=== PATIENT | male | born 1970 | race African-American/Black ===

== ENCOUNTER 2016-05-14 14:59 | Inpatient (IN) ==
[2016-05-14] MEDS ORDERED: HYDROmorphone 2 MG/1 ML VIAL IV PRN (15:04)
[2016-05-14] MEDS ORDERED: ONDANSETRON 4 MG/2 ML VIAL IV PRN (15:04)
[2016-05-14] MEDS ORDERED: ACETAMINOPHEN 325 MG TABLET PO PRN (15:04)
[2016-05-14 16:19] LABS: Basophils % 0.3 % (0.0-0.8); Eosinophils # 0.1 10*3/uL (0.0-0.87); Hematocrit 43.2 VOL% (42.0-52.0); Immature Granulocytes % 0.3 %; Immature Granulocytes Absolute 0.03 #; Lymphocytes # 2.8 10*3/uL (1.4-4.0); Lymphocytes % 31.2 % (21.2-54.2); Mean Corpuscular HGB Conc 32.4 GM/DL (32-36); Mean Corpuscular Hemoglobin 30 PG (27-34); Mean Corpuscular Volume 91.9 FL (87-102); Mean Platelet Volume 10.6 FL (9.6-12.0); Monocytes # 0.7 10*3/uL (0.11-0.8); Neutrophils # 5.3 10*3/uL (1.4-7.4); Neutrophils % 59.2 % (38.7-73.9); Platelet Count 288 10*3/uL (130-400); Red Cell Distribution Width 12.9 % (9.3-17.3)
[2016-05-14 16:40] LABS: Alanine Aminotransferase 16 U/L (16-61); Albumin 3.8 G/DL (3.4-5.0); Alkaline Phosphatase 149 U/L (45-117); Aspartate Amino Transferase 19 U/L (0-37); Bilirubin,Total < 0.39 MG/DL (0.2-1.0); Blood Urea Nitrogen 10 MG/DL (7-18); Calcium 9.8 MG/DL (8.5-10.1); Glucose 87 MG/DL (74-106); Osmolality,Calculated 278.3 MOS/KG (273-304); Sodium 141 MMOL/L (136-145); Total Protein 8.4 G/DL (6.4-8.3)
--- NOTE | 2016-05-14 17:57 | General Surg History&Physical ---
Assessment and Plan - Time spent with patient Time spent with patient: Less than 30 minutes (1) Perirectal abscess Status: Acute Assessment and plan: Impression: Recurrent perirectal abscess left gluteal area. Plan: IV antibiotics and surgical drainage and debridement Current Visit: No History of Present Illness Chief complaint: increasing pain and swelling with drainage left perirectal area History of present illness: Mr. Murphy is a 45 year old male -[place] male who couple months ago had undergo drainage of bilateral perirectal abscesses in both gluteal areas. He is done well with the right one completely healing up without any unusual drainage or swelling. He's had a little bit of drainage from the left perirectal area still over time. This is gotten worse with some increased induration and tenderness and more drainage present. It appears that he has a recurrence on this side and whether this represents a fistula not is difficult to say since this abscess seems so far away from the anal area. At this point we'll go ahead and put him in for drainage of this area to see if we can get control of this process. Home Medications Medication Instructions Recorded Confirmed Type Acetaminophen Tab [Tylenol Tab] 650 mg PO Q6H PRN #0 tablet 03/20/16 05/14/16 Rx HYDROcodone/ACETAMIN 7.5-325 1 tablet PO Q6H PRN #40 tablet 03/20/16 05/14/16 Rx [[place] 7.5-325] Allergies Allergy/AdvReac Type Severity Reaction Status Date / Time No Known Allergies Allergy Unverified 02/03/16 09:59 Medical,Surgical,& Family Hx - Medical History Respiratory: History of: Asthma (as a child) Other: History of: Miscellaneous Medical Problems (left and right buttock cheek abscess) - Family History Family History: Reports;: Family Cancer, Family Diabetes, Family Hypertension - Social History Smoking Status: Current every day smoker Lives With:: Parent Functional capacity: independent ambulation Exam - Constitutional Vitals: Period Temp Pulse Resp BP Sys/Polanco Pulse Ox Last 24 Hr 88 16 156/93 100 General appearance: mild distress - Head Head exam: Present: normal inspection - ENT ENT exam: Present: normal exam - Neck Neck exam: Present: normal inspection - Respiratory Respiratory exam: Present: clear to auscultation bilaterally - Cardiovascular Cardiovascular exam: Present: RRR - GI/Abdominal GI/Abdominal exam: Present: normal bowel sounds, soft - Anus/Rectum Anus/Rectum: other (there is a tender mass on the left gluteal perirectal area at the level of an old scar with purulent drainage.) - Extremities Exam Extremities exam: Present: normal inspection - Back Exam Back exam: Present: normal inspection - Neurological Exam Neurological exam: Present: alert, oriented X3, CN II-XII intact - Skin Skin exam: Present: normal color, warm, dry 12 point system: reviewed and no additional remarkable complaints except as stated Quality Measures - VTE Contraindication to Pharmacological VTE Prophylaxis: High Risk of Bleeding Results - Labs CBC & BMP: 05/14/16 16:06 05/14/16 16:05 Lab Results: I have reviewed the past 24 hour labs
[2016-05-14] MEDS: metroNIDAZOLE INJ 500 MG in PREMIX 1 EACH IV SCH ×2 (18:18→23:51)
[2016-05-14] MEDS: DEXTROSE 5% NACL 0.45% 1,000 ML IV SCH ×2 (21:28→23:52)
[2016-05-14] MEDS: DOCUSATE SODIUM 100 MG CAPSULE PO SCH (21:28)
[2016-05-15] MEDS ORDERED: ALBUTEROL 2.5 MG/3 ML NEB RESP TX ONE (06:00)
[2016-05-15] MEDS: metroNIDAZOLE INJ 500 MG in PREMIX 1 EACH IV SCH ×3 (07:30→23:13)
[2016-05-15] MEDS ORDERED: BUPIVACAINE 0.25% 50 ML VIAL ONE (09:40)
[2016-05-15] MEDS: DEXTROSE 5% NACL 0.45% 1,000 ML IV SCH ×3 (09:43→16:49)
[2016-05-15] MEDS: PANTOPRAZOLE 40 MG TABLET PO SCH (10:04)
[2016-05-15] MEDS: DOCUSATE SODIUM 100 MG CAPSULE PO SCH ×2 (10:04→21:45)
[2016-05-15] MEDS ORDERED: KETOROLAC 30 MG/1 ML VIAL ONE (10:50)
[2016-05-15] MEDS ORDERED: LIDOCAINE 100 MG/5 ML SYRINGE ONE (10:50)
[2016-05-15] MEDS ORDERED: PROPOFOL 200 MG/20 ML VIAL IV ONE (10:50)
[2016-05-15] MEDS ORDERED: ONDANSETRON 4 MG/2 ML VIAL ONE (10:50)
[2016-05-15] MEDS ORDERED: METHYLENE BLUE 10 ML VIAL IV ONE (11:10)
[2016-05-15] MEDS ORDERED: BISACODYL 5 MG TABLET PO PRN (11:39)
[2016-05-15] MEDS ORDERED: ONDANSETRON 4 MG/2 ML VIAL IV PRN ×2 (11:39→12:08)
[2016-05-15] MEDS ORDERED: ACETAMINOPHEN 1,000 MG/100 ML VIAL IV ONE (11:53)
[2016-05-15] MEDS ORDERED: SEVOFLURANE 1 UNIT/15 MINUTE INH ONE (11:53)
--- NOTE | 2016-05-15 11:55 | Operative Note ---
Date of procedure: 05/15/16 Pre-op diagnosis: recurrent perirectal abscess Post-op diagnosis: other (recurrent perirectal abscess with deep cavity but no clear fistula opening) Procedure: Operative note: Preoperative diagnosis: Recurrent perirectal abscess left gluteal area Postoperative diagnosis: Recurrent perirectal abscess involving both gluteal wounds with deep cavity but no clear fistula opening demonstrated. Procedure: Rectal exam under anesthesia with dye instillation into fistula tracts Excisional debridement and drainage of abscess cavities with placement of Rekha drains Surgeon Dr. Ruiz Anesthesia was general with local Brief history: 45-year-old [place] male about a month ago at abscesses in the elinor-in the perirectal gluteal areas of the both gluteal regions. They were opened and drained one on the right seem to have healed up completed one left tenet have a little bit of drainage. He returned yesterday to the office with more pain and induration in this area on the left. We fail weight need to go back and try get this drained and it was really far away from the anal area onto the gluteal region. A 1 sure what we would find the felt we need to get this better open for drainage. Procedure: With patient in the dorsal lithotomy position in stirrups was able to approach this area of the gluteal region. He could see the induration and drainage from the left gluteal wound that was holding almost healed up except for the site of drainage. At that point I attempted to probe it and it seemed to have a deep cavity going in towards the center portion of the perirectal gluteal area. At that point I went ahead and placed some methylene blue in we did we suddenly so blue dye from the right old gluteal wound. At that point I probed that right side and it went and they seemed to be going towards the center portion of this posterior perineal perirectal area. At that point I made an incision to open these up extending it towards the midline on both wounds. I was able put a finger into these wounds at this time and attempted to make him communicate but they would not seem to communicate but they seem to go Deep into the perirectal area of. That point we did an exam under anesthesia with a speculum and there is seen to be a little posterior anal ulcer present there and off to the right side with a right angle clamp seem to be a tract that will need to go in that direction. I attempted to I could not make him communicate with the dye or the probes at this point. Did not want to create additional wound that was not necessary at this point but a new we had to wounds going and deeply pointing towards this region. It is suspicious for a fistula but I could not make it clearly demonstrated itself at this time. At this point elected distal used electrocauterization control the bleeding at skin edges placed 2 Rekha drains in deeply and there and sutured in place with 4-0 nylon. A flatus allow these tracks to close over failed and direct out and maybe give us a clue used what's going on. At this point had need nothing more to do so we could bulky dressing zone could patient recovery room. Estimated blood loss 20 mL Sponge count correct 2 Drains 2 half-inch Rekha since Complications none Condition stable satisfactory Anesthesia: GETA, local (0.25% Marcaine with epinephrine mixed [id number] 1% Xylocaine plain) Surgeon / Physician: Kurtis Ruiz Estimated blood loss: other (20 mL) Specimens: other (cultures) Condition: stable Disposition: floor Results - Labs CBC & BMP: 05/14/16 16:06 05/14/16 16:05 Discharge Plan - Discharge Medications No Action Acetaminophen Tab [Tylenol Tab] 650 mg PO Q6H PRN #0 tablet PRN Reason: Pain Mild (1-3) HYDROcodone/ACETAMIN 7.5-325 [[place] 7.5-325] 1 tablet PO Q6H PRN #40 tablet PRN Reason: Pain Moderate (4-7) - Follow Up or Referral - Forms/Instructions
[2016-05-15] MEDS ORDERED: fentaNYL 100 MCG/2 ML VIAL ONE ×2 (11:56)
[2016-05-15] MEDS ORDERED: MIDAZOLAM 2 MG/2 ML VIAL ONE (11:57)
[2016-05-15] MEDS ORDERED: HYDROmorphone 2 MG/1 ML VIAL IV PRN (12:08)
[2016-05-15] MEDS ORDERED: LACTATED RINGERS 1,000 ML IV SCH (12:30)
[2016-05-15] MEDS: KETOROLAC 15 MG/1 ML VIAL IV SCH ×3 (13:35→23:14)
--- NOTE | 2016-05-15 15:56 | Anesthesia ---
Anesthesia Post OP - Post Ansesthetic Evaluation Patient seen in post op: Yes Resp: within normal limits CV: within normal limits Mental: within normal limits Temp: within normal limits [id number]: within normal limits Nausea and Vomiting: within normal limits Pain: within normal limits
[2016-05-16] MEDS: KETOROLAC 15 MG/1 ML VIAL IV SCH ×4 (05:53→23:35)
[2016-05-16] MEDS: DEXTROSE 5% NACL 0.45% 1,000 ML IV SCH ×2 (05:55→18:14)
[2016-05-16 07:11] LABS: Basophils % 0.4 % (0.0-0.8); Eosinophils # 0.1 10*3/uL (0.0-0.87); Eosinophils % 1.5 % (0.00-10.9); Hematocrit 37.1 VOL% (42.0-52.0); Hemoglobin 12.1 GM/DL (14.0-18.0); Immature Granulocytes % 0.1 %; Immature Granulocytes Absolute 0.01 #; Lymphocytes # 1.7 10*3/uL (1.4-4.0); Lymphocytes % 22.6 % (21.2-54.2); Mean Corpuscular HGB Conc 32.6 GM/DL (32-36); Mean Corpuscular Hemoglobin 30 PG (27-34); Mean Corpuscular Volume 90.7 FL (87-102); Mean Platelet Volume 10.4 FL (9.6-12.0); Monocytes # 0.7 10*3/uL (0.11-0.8); Monocytes % 9.2 % (1.7-12.7); Neutrophils # 4.9 10*3/uL (1.4-7.4); Neutrophils % 66.2 % (38.7-73.9); Platelet Count 266 10*3/uL (130-400); Red Blood Count 4.09 10*6/uL (3.8-5.5); Red Cell Distribution Width 12.7 % (9.3-17.3); White Blood Count 7.4 10*3/uL (4.5-13.71)
[2016-05-16 07:38] LABS: Calcium 8.7 MG/DL (8.5-10.1); Osmolality,Calculated 280.1 MOS/KG (273-304); Potassium 4.2 MMOL/L (3.5-5.1)
[2016-05-16] MEDS: metroNIDAZOLE INJ 500 MG in PREMIX 1 EACH IV SCH ×3 (08:54→23:34)
[2016-05-16] MEDS: PANTOPRAZOLE 40 MG TABLET PO SCH (08:54)
[2016-05-16] MEDS: DOCUSATE SODIUM 100 MG CAPSULE PO SCH ×2 (08:54→20:20)
--- NOTE | 2016-05-16 10:31 | General Surgery Progress Note ---
Assessment and Plan - Time spent with patient Time spent with patient: Less than 30 minutes (1) Perirectal abscess Status: Acute Assessment and plan: Impression: Recurrent perirectal abscess left gluteal area. Plan: IV antibiotics and surgical drainage and debridement 05/16/2016 Patient is postop I&D of bilateral perirectal abscesses. I feel like there is a fistula involved but could not make it clearly demonstrated self at this time. Starting since mass a local care again with continued IV antibiotics till cultures are back. Hope that we can get this to resolve [place] out to just one track or better demonstrate the anal fistula at some point. Current Visit: No Subjective Patient reports: Present: still having pain, tolerating a regular diet, afebrile. Absent: no bowel movement Exam - Constitutional Vitals: Period Temp Pulse Resp BP Sys/Polanco Pulse Ox Last 24 Hr 97.6 F-98.7 F 59-85 14-19 105-164/67-99 96-100 General appearance: mild distress - Head Head exam: Present: normal inspection - ENT ENT exam: Present: normal exam - Neck Neck exam: Present: normal inspection - Respiratory Respiratory exam: Present: clear to auscultation bilaterally - Cardiovascular Cardiovascular exam: Present: RRR - GI/Abdominal GI/Abdominal exam: Present: hypoactive bowel sounds, soft - Anus/Rectum Anus/Rectum: other (drains in place moderate drainage) - Extremities Exam Extremities exam: Present: normal inspection - Neurological Exam Neurological exam: Present: alert, oriented X3, CN II-XII intact - Skin Skin exam: Present: normal color, warm, dry Results - Labs CBC & BMP: 05/16/16 06:49 05/16/16 06:49 Lab Results: I have reviewed the past 24 hour labs Quality Measures - VTE Contraindication to Pharmacological VTE Prophylaxis: High Risk of Bleeding Specialty Discharge - Follow Up or Referrals - Discharge Medications No Action Acetaminophen Tab [Tylenol Tab] 650 mg PO Q6H PRN #0 tablet PRN Reason: Pain Mild (1-3) HYDROcodone/ACETAMIN 7.5-325 [[place] 7.5-325] 1 tablet PO Q6H PRN #40 tablet PRN Reason: Pain Moderate (4-7)
[2016-05-16] MEDS: BACITRACIN OINT 0.9 GM PACK TOP SCH (12:55)
[2016-05-16] MEDS: HYDROmorphone 2 MG/1 ML VIAL IV PRN (20:13)
[2016-05-17] MEDS: BACITRACIN OINT 0.9 GM PACK TOP SCH ×3 (00:01→21:27)
[2016-05-17] MEDS: KETOROLAC 15 MG/1 ML VIAL IV SCH ×4 (05:58→23:50)
[2016-05-17] MEDS: DEXTROSE 5% NACL 0.45% 1,000 ML IV SCH ×3 (05:59→17:44)
[2016-05-17] MEDS: metroNIDAZOLE INJ 500 MG in PREMIX 1 EACH IV SCH ×3 (06:33→23:49)
[2016-05-17] MEDS: PANTOPRAZOLE 40 MG TABLET PO SCH (09:00)
[2016-05-17] MEDS: DOCUSATE SODIUM 100 MG CAPSULE PO SCH ×2 (09:00→21:26)
[2016-05-17] MEDS: HYDROmorphone 2 MG/1 ML VIAL IV PRN ×2 (09:01→16:41)
--- NOTE | 2016-05-17 10:55 | General Surgery Progress Note ---
Assessment and Plan (1) Perirectal abscess Status: Acute Assessment and plan: Impression: Recurrent perirectal abscess left gluteal area. Plan: IV antibiotics and surgical drainage and debridement 05/16/2016 Patient is postop I&D of bilateral perirectal abscesses. I feel like there is a fistula involved but could not make it clearly demonstrated self at this time. Starting since mass a local care again with continued IV antibiotics till cultures are back. Hope that we can get this to resolve [place] out to just one track or better demonstrate the anal fistula at some point. 05/17/2016 Afebrile and sitz baths and wound care or progressing. Cultures are still pending at this time. Moderate discomfort but beginning to improve a little bit and feel like that he can manage it better. Current Visit: No Subjective Patient reports: Present: feels better, pain is less, tolerating a regular diet , afebrile Exam - Constitutional Vitals: Period Temp Pulse Resp BP Sys/Polanco Pulse Ox Last 24 Hr 97.8 F-99.0 F 59-72 16-20 135-156/72-98 96-100 General appearance: no acute distress - Respiratory Respiratory exam: Present: clear to auscultation bilaterally - Cardiovascular Cardiovascular exam: Present: RRR - GI/Abdominal GI/Abdominal exam: Present: normal bowel sounds, soft - Anus/Rectum Anus/Rectum: other (perianal area with the drains in place and some moderate drainage but only tenderness but less induration) - Neurological Exam Neurological exam: Present: alert, oriented X3, CN II-XII intact - Skin Skin exam: Present: normal color, warm, dry Results - Labs CBC & BMP: 05/16/16 06:49 05/16/16 06:49 Lab Results: I have reviewed the past 24 hour labs Quality Measures - VTE Contraindication to Pharmacological VTE Prophylaxis: High Risk of Bleeding Specialty Discharge - Follow Up or Referrals - Discharge Medications No Action Acetaminophen Tab [Tylenol Tab] 650 mg PO Q6H PRN #0 tablet PRN Reason: Pain Mild (1-3) HYDROcodone/ACETAMIN 7.5-325 [[place] 7.5-325] 1 tablet PO Q6H PRN #40 tablet PRN Reason: Pain Moderate (4-7)
[2016-05-18] MEDS: KETOROLAC 15 MG/1 ML VIAL IV SCH (05:38)
--- NOTE | 2016-05-18 07:53 | General Surgery Progress Note ---
Assessment and Plan - Time spent with patient Time spent with patient: Less than 30 minutes (1) Perirectal abscess Status: Acute Assessment and plan: Impression: Recurrent perirectal abscess left gluteal area. Plan: IV antibiotics and surgical drainage and debridement 05/16/2016 Patient is postop I&D of bilateral perirectal abscesses. I feel like there is a fistula involved but could not make it clearly demonstrated self at this time. Starting since mass a local care again with continued IV antibiotics till cultures are back. Hope that we can get this to resolve [place] out to just one track or better demonstrate the anal fistula at some point. 05/17/2016 Afebrile and sitz baths and wound care or progressing. Cultures are still pending at this time. Moderate discomfort but beginning to improve a little bit and feel like that he can manage it better. 05/18/2016 Patient's afebrile [place] wound care fairly well but it is difficult for him. Cultures are not completely back although there is showing some no growth. This makes it more difficult first understanding with this process is is caused this to occur at this time. We'll probably send patient home tomorrow if finals on his cultures are out and we'll see exactly what how he responds to treatment at home. I suspect Rekha drains will work airways out in a few days. Current Visit: No Subjective Patient reports: Present: pain is less, tolerating a regular diet, afebrile Exam - Constitutional Vitals: Period Temp Pulse Resp BP Sys/Polanco Pulse Ox Last 24 Hr 97.9 F-99.0 F 58-77 16-20 134-159/73-98 96-100 General appearance: mild distress - Head Head exam: Present: normal inspection - ENT ENT exam: Present: normal exam - Neck Neck exam: Present: normal inspection - Respiratory Respiratory exam: Present: clear to auscultation bilaterally, rales - Cardiovascular Cardiovascular exam: Present: RRR - GI/Abdominal GI/Abdominal exam: Present: normal bowel sounds, soft - Anus/Rectum Anus/Rectum: other (wounds on the buttocks areas have a little bit of drainage with the [place] drain still in place and intact) - Extremities Exam Extremities exam: Present: normal inspection - Neurological Exam Neurological exam: Present: alert, oriented X3, CN II-XII intact - Skin Skin exam: Present: normal color, warm, dry Results - Labs CBC & BMP: 05/16/16 06:49 05/16/16 06:49 Lab Results: I have reviewed the past 24 hour labs Quality Measures - VTE Contraindication to Pharmacological VTE Prophylaxis: High Risk of Bleeding Specialty Discharge - Follow Up or Referrals - Discharge Medications No Action Acetaminophen Tab [Tylenol Tab] 650 mg PO Q6H PRN #0 tablet PRN Reason: Pain Mild (1-3) HYDROcodone/ACETAMIN 7.5-325 [[place] 7.5-325] 1 tablet PO Q6H PRN #40 tablet PRN Reason: Pain Moderate (4-7)
[2016-05-18] MEDS: DEXTROSE 5% NACL 0.45% 1,000 ML IV SCH (08:02)
[2016-05-18] MEDS: metroNIDAZOLE INJ 500 MG in PREMIX 1 EACH IV SCH ×3 (08:20→22:34)
[2016-05-18] MEDS: DOCUSATE SODIUM 100 MG CAPSULE PO SCH ×2 (08:23→20:49)
[2016-05-18] MEDS: BACITRACIN OINT 0.9 GM PACK TOP SCH ×2 (08:23→20:49)
[2016-05-18] MEDS: PANTOPRAZOLE 40 MG TABLET PO SCH (08:23)
[2016-05-19] MEDS: metroNIDAZOLE INJ 500 MG in PREMIX 1 EACH IV SCH ×2 (09:30→16:26)
[2016-05-19] MEDS: BACITRACIN OINT 0.9 GM PACK TOP SCH (09:31)
[2016-05-19] MEDS: DOCUSATE SODIUM 100 MG CAPSULE PO SCH (09:35)
[2016-05-19] MEDS: PANTOPRAZOLE 40 MG TABLET PO SCH (09:35)
[2016-05-19 16:25] VITALS: BP 128/68
--- NOTE | 2016-05-19 16:28 | Discharge Summary ---
Hospital Course - Hospital Course Hospital Course: Discharge summary: Discharge diagnosis recurrent bilateral gluteal peroneal perirectal abscesses Procedure: Excisional debridement and drainage of bilateral gluteal peroneal ulcers with rectal exam under anesthesia Surgeon Dr. Ruiz Brief summary: 45-year-old after [place] male who had undergone drainage of large abscesses on both gluteal areas better than a month ago and was doing pretty well with 1 to seemly closed. He continued to have drainage of the left gluteal area and in came in with with increased pain and induration of the left gluteal region. It appeared that he had a recurrence of this abscess so we elected bring him in for IV antibiotics and surgery. He went to surgery and the time of surgery We in still some blue dye into the left gluteal defect and had it show up out of the right wound right gluteal scar. At that point we began to open both the right and left gluteal areas. Both gluteal wounds dissected deep towards the perirectal area but did not completely communicate with each other. Cultures were taken from the deep part of these wounds. And then we did an exam under anesthesia of the rectum but could not identify a clear fistula opening into the defects. Unable to determine the true etiology of this we then put Rekha drains in to the deep or the wounds and secured the him to the skin for drainage purposes. He's been on the floor on IV antibiotics and undergoing wound care with showers and sits bacitracin these areas is clean as possible in the hopes of getting him to heal from the inside out. Remaining concerned we don't really have a good reason for this recurrent of this wound. Her cultures did grow gram-positive cocci out although they never did give us a clear densification of it. He is doing better and tolerated things well to the point that we'll go ahead and let him go home to continue care and follow him up in the office we'll keep these drains in place at this time. - Time spent with patient Time with patient DS: Greater than 30 minutes Diagnosis - Discharge Diagnosis (1) Perirectal abscess Status: Chronic Specialty Discharge - Follow Up or Referrals Follow up with: Kurtis Ruiz MD [Physician] - 05/26/16 - Speciality Discharge Instructions Surgery Instructions: 1. Continue present wound care to the gluteal areas. 2. Keep dressing in place as much as possible. 3. Dress the wounds twice a day and more often as needed. 4. We'll see in the office in a week to see what we underwent the drains at that time. - Discharge Medications New Acetaminophen Tab [Tylenol Tab] 650 mg PO Q6H PRN #0 tablet PRN Reason: Pain Mild (1-3) And/Or Fever Docusate Sodium Cap [Colace Cap] 100 mg PO BID #30 capsule HYDROcodone/ACETAMIN 7.5-325 [[place] 7.5-325] 1 tablet PO Q6H PRN #40 tablet PRN Reason: Pain Moderate (4-7) Sulfameth/Trimeth 800-160 Tab [Bactrim DS Tab] 1 tablet PO BID 14 Days Continue Acetaminophen Tab [Tylenol Tab] 650 mg PO Q6H PRN #0 tablet PRN Reason: Pain Mild (1-3) HYDROcodone/ACETAMIN 7.5-325 [[place] 7.5-325] 1 tablet PO Q6H PRN #40 tablet PRN Reason: Pain Moderate (4-7) Discharge Plan - Discharge Data Disposition: Disch To Home/Self Care Condition at Discharge: Stable Discharge Diet: advance to your usual diet Activity: increase activity as tolerated Hygiene: may shower, other (sitz baths) Weight Bearing at Discharge: full weight bearing Driving: no restrictions Contact your physician if you experience:: fever over 101, Redness or swelling, pain uncontrolled by pain medications Wound / Dressing Care Instructions: Wound care to the buttocks wounds twice a day and as needed. 1. Shower and use soap of choice--then get into a sitz baths. 2. Dry well and applied bacitracin ointment to the area of the drains. 3. Cover with fluffs and ABDs. 4. Wear brief underwear to try to hold dressings in place - Discharge Medications No Action Acetaminophen Tab [Tylenol Tab] 650 mg PO Q6H PRN #0 tablet PRN Reason: Pain Mild (1-3) HYDROcodone/ACETAMIN 7.5-325 [[place] 7.5-325] 1 tablet PO Q6H PRN #40 tablet PRN Reason: Pain Moderate (4-7) - Follow Up or Referral - Forms/Instructions Exam - Constitutional Vitals: Period Temp Pulse Resp BP Sys/Polanco Pulse Ox Last 24 Hr 97.8 F-99 F 53-105 18-20 120-156/70-107 94-99 General appearance: mild distress - Head Head exam: Present: normal inspection - ENT ENT exam: Present: normal exam - Neck Neck exam: Present: normal inspection - Respiratory Respiratory exam: Present: clear to auscultation bilaterally - Cardiovascular Cardiovascular exam: Present: regular rate and rhythm - GI/Abdominal GI/Abdominal exam: Present: normal bowel sounds, soft - Extremities Exam Extremities exam: Present: normal inspection - Back Exam Back exam: Present: other (wounds are clean with some drainage and the [place] still in place.) - Neurological Exam Neurological exam: Present: alert, oriented X3, CN II-XII intact - Psychiatric Psychiatric exam: Present: normal affect, anxious - Skin Skin exam: Present: normal color, warm, dry DS: Provider Date of admission: 05/14/16 15:04 Primary care physician: . No PCP Attending physician on admission: Kurtis Ruiz MD Consults: 05/14/16 17:09 Consult to Pharmacy [CONS] Routine Reason for Pharmacy Consult: Adjust Meds Renal Funct Discharging clinician: Kurtis Ruiz MD Expected date of discharge: 05/19/16
== END 2016-05-19 17:30 | disposition home or self-care (01) | DRG 330 ==
LOC: EDBD → N.5E → OBSVTOIN 15:04
PROVIDERS: ADMIT Specialist; ATTEND Specialist

== ENCOUNTER 2016-12-09 13:08 | Inpatient (IN) ==
[2016-12-09 15:47] LABS: Basophils % 0.3 % (0.0-0.8); Eosinophils # 0.1 10*3/uL (0.0-0.87); Eosinophils % 1.2 % (0.00-10.9); Hematocrit 42.8 VOL% (42.0-52.0); Hemoglobin 14.6 GM/DL (14.0-18.0); Immature Granulocytes % 0.3 %; Immature Granulocytes Absolute 0.03 #; Lymphocytes % 34.9 % (21.2-54.2); Mean Corpuscular HGB Conc 34.1 GM/DL (32-36); Mean Corpuscular Hemoglobin 31 PG (27-34); Mean Corpuscular Volume 91.6 FL (87-102); Mean Platelet Volume 10.6 FL (9.6-12.0); Monocytes # 0.6 10*3/uL (0.11-0.8); Monocytes % 7.4 % (1.7-12.7); Neutrophils # 4.9 10*3/uL (1.4-7.4); Neutrophils % 55.9 % (38.7-73.9); Platelet Count 263 T/CUMM (130-400); Red Blood Count 4.67 MC/CUMM (3.8-5.5); Red Cell Distribution Width 13.1 % (9.3-17.3); White Blood Count 8.7 T/CUMM (4-12)
--- NOTE | 2016-12-09 15:49 | Emergency Department Note ---
Arrival - Arrival Chief Complaint: Non-Specific Stated Complaint: pain down back and leg numbness,feet tingling ED Nursing Triage Note: states when walking his rt side goes numb when walking onset 6 months ago. pt also had something on lt thigh that is drainage onset 3 weeks ago Mode of Arrival: Ambulatory Source: Patient Time Seen by Provider: 12/09/16 14:17 - History of Present Illness HPI Narrative: 45 y/o male presents to the ER complaining of pain and drainage to buttock. Symptoms starting three weeks ago. Patient had I&D to perirectal abscess in May by Dr. Ruiz. Patient states abscess improved after I&D but has now returned. Last medical history significant for asthma and perirectal abscess. Onset (ago): week(s) (3) Consistency: constant Severity: mild Allergies/Adverse Reactions: Allergies Allergy/AdvReac Type Severity Reaction Status Date / Time No Known Allergies Allergy Unverified 02/03/16 09:59 Home Medications: Home Medications Medication Instructions Recorded Confirmed Type Acetaminophen Tab [Tylenol Tab] 650 mg PO Q6H PRN #0 tablet 03/20/16 05/14/16 Rx HYDROcodone/ACETAMIN 7.5-325 1 tablet PO Q6H PRN #40 tablet 03/20/16 05/14/16 Rx [[place] 7.5-325] Acetaminophen Tab [Tylenol Tab] 650 mg PO Q6H PRN #0 tablet 05/19/16 Rx Docusate Sodium Cap [Colace Cap] 100 mg PO BID #30 capsule 05/19/16 Rx HYDROcodone/ACETAMIN 7.5-325 1 tablet PO Q6H PRN #40 tablet 05/19/16 Rx [[place] 7.5-325] Sulfameth/Trimeth 800-160 Tab 1 tablet PO BID 14 Days 05/19/16 Rx [Bactrim DS Tab] Review of System - Review of System 12 point system: reviewed and no additional remarkable complaints except as stated - Review of System Skin: Present: other (buttock abscess ) Medical,Surgical,& Family Hx - Medical History Respiratory: History of: Asthma (as a child) Other: History of: Miscellaneous Medical Problems (left and right buttock cheek abscess) - Family History Family History: Reports;: Family Cancer, Family Diabetes, Family Hypertension - Social History Smoking Status: Current every day smoker Frequency of Alcohol Use: Occasionally Type of Drug Use: None Exam Vital Signs: Vital Signs Temperature 97.9 F 12/09/16 13:34 Pulse Rate 73 12/09/16 15:16 Respiratory Rate 20 12/09/16 15:16 Blood Pressure 132/72 12/09/16 15:16 O2 Sat by Pulse Oximetry 96 12/09/16 13:20 - General General appearance: alert, in no apparent distress - ENT ENT exam: Present: normal exam, normal oropharynx, mucous membranes moist - Chest Chest inspection: Present: normal inspection - Respiratory Respiratory exam: Present: normal lung sounds bilaterally - Cardiovascular Cardiovascular exam: Present: regular rate, normal rhythm, normal heart sounds - Abdominal Exam Abdominal exam: Present: soft, normal bowel sounds. Absent: tenderness - Rectal Exam Rectal exam: Present: tenderness (TTP, induration, and erythema to either side of anus; active drainage presents ) - Extremities Exam Extremities exam: Present: normal inspection, full ROM - Neurological Exam Neurological exam: Present: alert, oriented X3 - Psychiatric Psychiatric exam: Present: normal affect, normal mood - Skin Skin exam: Present: warm, dry, other Course Course Narrative: 1600: Dr. Ruiz into evaluate patient. - Consultations Consultation #1: Dr. Ruiz Time: 15:20 (Discussed case with Dr. Ruiz. Dr. Ruiz will come to ER to evaluate patient. ) Results - Labs CBC & BMP: 12/09/16 15:20 Lab Results: I have reviewed the patients labs Disposition Clinical Impression: Perirectal abscess Case discussed with: patient Disposition: Still a Patient Condition: Stable
[2016-12-09] MEDS ORDERED: BISACODYL 5 MG TABLET PO PRN (16:02)
[2016-12-09] MEDS ORDERED: ACETAMINOPHEN 325 MG TABLET PO PRN (16:02)
[2016-12-09] MEDS ORDERED: ONDANSETRON 4 MG/2 ML VIAL IV PRN (16:02)
[2016-12-09 16:12] LABS: Eosinophils 2 % (0-10); Giant Platelets Few; Hypochromasia 1+; Lymphocytes 35 % (20-55); Ovalocytes Slight; Platelet Estimate Adequate; Segmented Neutrophils 57 % (50-85); Total Cells Counted 100
--- NOTE | 2016-12-09 16:14 | General Surg History&Physical ---
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 Current Visit: No (2) Claudication Status: Acute Assessment and plan: Impression: Claudication Plan: Lower arterial vascular studies Current Visit: Yes History of Present Illness Chief complaint: Recurrent painful swelling perirectal area History of present illness: Mr. Murphy is a 45 year old male -Japanese who has had 2 surgeries in the elinor-rectal area for drainage of abscesses without a clear evidence of a fistula tract. Made multiple attempts to try to find a fistula opening because it seems to be consistent with that but have been unable to find it it and he continues to have some pain discomfort in the area. At the onset of some swelling and now has some drainage in this area and very painful to where he had come in the urgency room at this time. Will admit him for some additional workup see if there is something more we can do surgically to get this under control. Patient also has underlying complaint of burning and discomfort in his lower extremities walking no more than a couple of blocks before he has to stop and rest. Do not feel this has anything to do with his abscesses and may represent some claudication for some reason but will get him in and evaluate that same time. Home Medications Medication Instructions Recorded Confirmed Type Acetaminophen Tab [Tylenol Tab] 650 mg PO Q6H PRN #0 tablet 03/20/16 05/14/16 Rx HYDROcodone/ACETAMIN 7.5-325 1 tablet PO Q6H PRN #40 tablet 03/20/16 05/14/16 Rx [Santo 7.5-325] Acetaminophen Tab [Tylenol Tab] 650 mg PO Q6H PRN #0 tablet 05/19/16 Rx Docusate Sodium Cap [Colace Cap] 100 mg PO BID #30 capsule 05/19/16 Rx HYDROcodone/ACETAMIN 7.5-325 1 tablet PO Q6H PRN #40 tablet 05/19/16 Rx [Santo 7.5-325] Sulfameth/Trimeth 800-160 Tab 1 tablet PO BID 14 Days 05/19/16 Rx [Bactrim DS Tab] Allergies Allergy/AdvReac Type Severity Reaction Status Date / Time No Known Allergies Allergy Unverified 09/25/16 09:59 Medical,Surgical,& Family Hx - Medical History Respiratory: History of: Asthma (as a child) Other: History of: Miscellaneous Medical Problems (left and right buttock cheek abscess) - Family History Family History: Reports;: Family Cancer, Family Diabetes, Family Hypertension - Social History Smoking Status: Current every day smoker Frequency of Alcohol Use: Occasionally Type of Drug Use: None Exam - Constitutional Vitals: Period Temp Pulse Resp BP Sys/Polanco Pulse Ox Last 24 Hr 97.9 F-97.9 F 73-122 18-20 113-132/72-87 96 General appearance: mild distress - Head Head exam: Present: normal inspection - ENT ENT exam: Present: normal exam - Neck Neck exam: Present: normal inspection - Respiratory Respiratory exam: Present: clear to auscultation bilaterally, rales - Cardiovascular Cardiovascular exam: Present: RRR - GI/Abdominal GI/Abdominal exam: Present: hypoactive bowel sounds, soft. Absent: tenderness - Anus/Rectum Anus/Rectum: other (Indurated areas on either side of the anus with some openings and drainage present at this time) - Extremities Exam Extremities exam: Present: normal inspection - Back Exam Back exam: Present: normal inspection - Neurological Exam Neurological exam: Present: alert, oriented X3, CN II-XII intact - Skin Skin exam: Present: normal color, warm, dry 12 point system: reviewed and no additional remarkable complaints except as stated Quality Measures - VTE Contraindication to Pharmacological VTE Prophylaxis: Clinical assessment deems Pt at low risk, no prophalaxis needed Results - Labs CBC & BMP: 12/09/16 15:20 Lab Results: I have reviewed the past 24 hour labs
[2016-12-09 16:20] LABS: Alanine Aminotransferase 21 U/L (16-61); Albumin 3.5 G/DL (3.4-5.0); Alkaline Phosphatase 130 U/L (45-117); Aspartate Amino Transferase 18 U/L (0-37); Bilirubin,Total < 0.39 MG/DL (0.2-1.0); Blood Urea Nitrogen 9 MG/DL (7-18); Calcium 9.6 MG/DL (8.5-10.1); Glucose 78 MG/DL (74-106); Osmolality,Calculated 267.1 MOS/KG (273-304); Potassium 3.7 MMOL/L (3.5-5.1); Sodium 135 MMOL/L (136-145); Total Protein 8.3 G/DL (6.4-8.3)
--- NOTE | 2016-12-09 16:52 | XRay Report ---
XR chest 2V Indication: Perirectal abscess. Comparison: None. Technique: PA and lateral chest x-ray was performed. Findings: Heart size, mediastinal contour, and hilar structures demonstrate no significant abnormalities. The lung parenchyma is clear. Bones and soft tissues demonstrate no significant abnormalities. Impression: 1. No active cardiopulmonary disease. 12/09/2016 4:49 PM PROCEDURE INTERPRETED AT [facility] DEPARTMENT OF RADIOLOGY Final Report Signed by: Dr. Amrik Marie
[2016-12-09] MEDS: DEXTROSE 5% NACL 0.45% 1,000 ML IV SCH (17:53)
[2016-12-09] MEDS: SULFAMETHOX/TRIMETHOPRIM 800-160 MG TABLET PO SCH (20:03)
[2016-12-09] MEDS: DOCUSATE SODIUM 100 MG CAPSULE PO SCH (20:03)
[2016-12-10] MEDS: DEXTROSE 5% NACL 0.45% 1,000 ML IV SCH ×3 (02:25→23:18)
--- NOTE | 2016-12-10 08:41 | CT Report ---
CT pelvis w con Indication: Recurrent perirectal abscess Comparison: None Technique: Multiple axial tomographic images of the pelvis were obtained after the administration of 100 cc Omnipaque 350 intravenous contrast. Oral contrast also administered. 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 There is reconstitution at the bifurcation of the deep and superficial right femoral artery as well as at the distal left common iliac artery. Calcification the prostate noted. No definite perirectal abscess. Urinary bladder grossly unremarkable. Visualized osseous and surrounding soft tissue structures demonstrate no acute abnormality. 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 There is reconstitution at the bifurcation of the deep and superficial right femoral artery as well as at the distal left common iliac artery. No definite perirectal abscess. Critical Results: Initiated by Kyleigh at time of dictation. The CT exam was performed using one or more of the following dose reduction techniques: Automated exposure control, adjustment of the mA and/or kV according to patient size, or use of iterative reconstruction technique. PROCEDURE INTERPRETED AT [facility] DEPARTMENT OF RADIOLOGY Final Report Signed by: Dr Robert Johnson
--- NOTE | 2016-12-10 11:28 | General Surgery Progress Note ---
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 12/10/2016 Little change in this area at this time still bit a tender and some mild drainage. CT scan did not show any much in the region of the perirectal region to suggest abscess or anything. Current Visit: No (2) Claudication Status: Acute Assessment and plan: Impression: Claudication Plan: Lower arterial vascular studies 12/10/2016. Patient's claudication is revealed the waveforms are very poor in the lower extremities and do not have any pressures at this point but there is very little in the waveform itself. Abdomen CT pelvis for the purpose of looking at the anal area to see what might be going on there and this revealed a complete occlusion of the distal aorta right iliac vessels. Will consult vascular at this time. Current Visit: Yes Subjective Patient reports: Present: still having pain, no bowel movement, afebrile Exam - Constitutional Vitals: Period Temp Pulse Resp BP Sys/Polanco Pulse Ox Last 24 Hr 97.7 F-98.3 F 54-122 18-20 113-156/69-90 96-100 General appearance: mild distress - Head Head exam: Present: normal inspection - ENT ENT exam: Present: normal exam - Neck Neck exam: Present: normal inspection - Respiratory Respiratory exam: Present: clear to auscultation bilaterally, rales - Cardiovascular Cardiovascular exam: Present: RRR - GI/Abdominal GI/Abdominal exam: Present: normal bowel sounds, soft - Anus/Rectum Anus/Rectum: other (Still with areas of some drainage from possible fistula tract) - Extremities Exam Extremities exam: Present: normal inspection - Back Exam Back exam: Present: normal inspection - Neurological Exam Neurological exam: Present: alert, oriented X3, CN II-XII intact - Skin Skin exam: Present: normal color, warm, dry Results - Labs CBC & BMP: 12/09/16 15:20 12/09/16 15:20 Quality Measures - VTE Contraindication to Pharmacological VTE Prophylaxis: Clinical assessment deems Pt at low risk, no prophalaxis needed
[2016-12-10] MEDS: HYDROmorphone 2 MG/1 ML VIAL IV PRN ×3 (11:54→20:30)
[2016-12-10] MEDS: DOCUSATE SODIUM 100 MG CAPSULE PO SCH ×2 (14:22→20:30)
[2016-12-10] MEDS: PANTOPRAZOLE 40 MG TABLET PO SCH (14:22)
[2016-12-10] MEDS: SULFAMETHOX/TRIMETHOPRIM 800-160 MG TABLET PO SCH ×2 (14:22→20:30)
--- NOTE | 2016-12-10 15:52 | Vascular Surgery Consult Note ---
History of Present Illness Chief complaint: aortoiliac occlusion History of present illness: Mr. Murphy is a 45 year old male Mr. Mallory Murphy is a 45-year-old man long history of cigarette smoking although he states he is only smoking through 4 cigarettes a day now. 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 Patient states that he has had progression of walking difficulties for a year or so where he just has severe pain cramping in legs giving out walking a fairly short distance. He also reports significant shortness of breath with the that sort of exercise but denies any specific crushing chest pain. He has never seen a proposal analyst and is not aware of any other particular problems of puts him at risk for rapid onset atherosclerosis. I reviewed his noninvasive studies and the CAT scan that was done earlier today and he certainly does appear to have aortoiliac occlusion. I will order a CT angiogram of the aortofemoral and runoff systems in order to determine where we may need to look at bypassing but I suspect a aortobifemoral bypass is in the future for him. I am also going to ask cardiology to see him simply from the standpoint that if he has this extensive atherosclerotic disease at age 45 he is at significant risk for cardiac disease as well. I have explained what we are seeing and what my recommendations are to Mr. Murphy and he agrees with this plan. As I told Mr. Murphy and Dr. Ruiz and I have spoken we need to address any perirectal abscess or infection before considering any sort of aortic graft procedure. Home Medications Medication Instructions Recorded Confirmed Type No Known Home Medications [No 12/09/16 12/09/16 History Known Home Medications] Allergies Allergy/AdvReac Type Severity Reaction Status Date / Time No Known Allergies Allergy Unverified 02/03/16 09:59 Medical,Surgical,& Family Hx - Medical History Respiratory: History of: Asthma (as a child) Other: History of: Miscellaneous Medical Problems (left and right buttock cheek abscess) - Family History Family History: Reports;: Family Cancer, Family Diabetes, Family Hypertension - Social History Smoking Status: Current every day smoker Frequency of Alcohol Use: Occasionally Type of Drug Use: None Exam - Constitutional Vitals: Period Temp Pulse Resp BP Sys/Polanco Pulse Ox Last 24 Hr 97.7 F-98.3 F 54-83 18-20 116-156/69-90 97-100 Quality Measures - VTE Contraindication to Pharmacological VTE Prophylaxis: Clinical assessment deems Pt at low risk, no prophalaxis needed Results - Labs CBC & BMP: 12/09/16 15:20 12/09/16 15:20
[2016-12-10] MEDS: ZALEPLON 5 MG CAPSULE PO PRN (20:30)
[2016-12-11] MEDS: HYDROmorphone 2 MG/1 ML VIAL IV PRN (05:27)
[2016-12-11 05:44] LABS: Basophils % 0.6 % (0.0-0.8); Eosinophils # 0.2 10*3/uL (0.0-0.87); Eosinophils % 2.9 % (0.00-10.9); Hematocrit 41.1 VOL% (42.0-52.0); Hemoglobin 13.9 GM/DL (14.0-18.0); Immature Granulocytes % 0.3 %; Immature Granulocytes Absolute 0.02 #; Lymphocytes # 2.6 10*3/uL (1.4-4.0); Lymphocytes % 39.1 % (21.2-54.2); Mean Corpuscular HGB Conc 33.8 GM/DL (32-36); Mean Corpuscular Hemoglobin 32 PG (27-34); Mean Corpuscular Volume 94.1 FL (87-102); Mean Platelet Volume 11.1 FL (9.6-12.0); Monocytes # 0.6 10*3/uL (0.11-0.8); Monocytes % 9.6 % (1.7-12.7); Neutrophils # 3.1 10*3/uL (1.4-7.4); Neutrophils % 47.5 % (38.7-73.9); Platelet Count 232 T/CUMM (130-400); Red Blood Count 4.37 MC/CUMM (3.8-5.5); Red Cell Distribution Width 12.9 % (9.3-17.3); White Blood Count 6.5 T/CUMM (4-12)
[2016-12-11 06:19] LABS: Calcium 9.4 MG/DL (8.5-10.1); Magnesium 2.2 MG/DL (1.8-2.4); Osmolality,Calculated 272.7 MOS/KG (273-304); Potassium 4.3 MMOL/L (3.5-5.1)
[2016-12-11 06:23] LABS: PT Patient Result 10.7 SECS; Partial Thromboplastin Time 32.4 SECS (0-40)
[2016-12-11 06:48] LABS: Anisocytosis Slight; Band Neutrophils 2 % (0-10); Eosinophils 3 % (0-10); Lymphocytes 34 % (20-55); Macrocytosis Slight; Platelet Estimate Normal; Segmented Neutrophils 52 % (50-85); Total Cells Counted 100
[2016-12-11] MEDS: DEXTROSE 5% NACL 0.45% 1,000 ML IV SCH ×3 (10:26→20:36)
[2016-12-11] MEDS: DOCUSATE SODIUM 100 MG CAPSULE PO SCH ×2 (10:32→20:36)
[2016-12-11] MEDS: SULFAMETHOX/TRIMETHOPRIM 800-160 MG TABLET PO SCH ×2 (10:32→20:36)
[2016-12-11] MEDS: PANTOPRAZOLE 40 MG TABLET PO SCH (10:33)
--- NOTE | 2016-12-11 10:49 | EKG Report ---
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
--- NOTE | 2016-12-11 11:16 | General Surgery Progress Note ---
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 12/10/2016 Little change in this area at this time still bit a tender and some mild drainage. CT scan did not show any much in the region of the perirectal region to suggest abscess or anything. 12/11/2016. Still unclear how significant this process is in the perirectal region. Could consider exam under anesthesia with possible drainage or surgical excision if we could find the internal fistula opening. Will discuss with Dr. Gil about his needs to get him ready for any type of grafting. Current Visit: No (2) Claudication Status: Acute Assessment and plan: Impression: Claudication Plan: Lower arterial vascular studies 12/10/2016. Patient's claudication is revealed the waveforms are very poor in the lower extremities and do not have any pressures at this point but there is very little in the waveform itself. Abdomen CT pelvis for the purpose of looking at the anal area to see what might be going on there and this revealed a complete occlusion of the distal aorta right iliac vessels. Will consult vascular at this time. 12/11/2016. Dr. Villasenor has seen the patient and ordered a CTA today. Results of that is not available at this point. Will discuss further with him plans for surgery Current Visit: Yes Subjective Patient reports: Present: feels better, afebrile Exam - Constitutional Vitals: Period Temp Pulse Resp BP Sys/Polanco Pulse Ox Last 24 Hr 96.6 F-98.0 F 58-73 18-20 121-151/75-96 99-100 General appearance: mild distress - Head Head exam: Present: normal inspection - ENT ENT exam: Present: normal exam - Neck Neck exam: Present: normal inspection - Respiratory Respiratory exam: Present: rales - Cardiovascular Cardiovascular exam: Present: RRR - GI/Abdominal GI/Abdominal exam: Present: hypoactive bowel sounds, soft - Anus/Rectum Anus/Rectum: other (Still with some induration and little bit of drainage in this area.) - Extremities Exam Extremities exam: Present: normal inspection - Back Exam Back exam: Present: normal inspection - Neurological Exam Neurological exam: Present: alert, oriented X3, CN II-XII intact - Skin Skin exam: Present: normal color, warm, dry Results - Labs CBC & BMP: 12/11/16 04:52 12/11/16 04:52 Lab Results: I have reviewed the past 24 hour labs Quality Measures - VTE Contraindication to Pharmacological VTE Prophylaxis: Clinical assessment deems Pt at low risk, no prophalaxis needed
--- NOTE | 2016-12-11 11:31 | CT Report ---
CT angio abdomen/femoral Indication: Aortic occlusion identified recent CT. CT ANGIOGRAM ABDOMINAL AORTA WITH BILATERAL LOWER EXTREMITY RUNOFF DLP: 700 mGy*cm. One or more of the following dose reduction techniques was used: Automated exposure control, adjustment of the mA and/or kV according the patient size, or use of iterative reconstruction techniques. Comparison: None. Technique: Axial thin cut CT images were obtained from the dome of the diaphragm through the feet during the arterial phase of contrast injection. 3-D vascular MIPS reconstructions and multiplanar reformats were evaluated. Omnipaque 350, 120 cc administered. Arteriogram: Thoracoabdominal aorta is widely patent to the lowest left renal artery. Celiac, superior mesenteric and bilateral renal arteries including duplicated left renal arteries are widely patent. At the lowest left renal artery, there is abrupt occlusion of the aorta with occlusion extending into the proximal common iliac arteries. Both common iliac arteries show some minimal retrograde reconstitution but are severely diseased. The left external iliac artery is patent but very small, measuring 4 mm diameter. The right external iliac artery is occluded proximally and reconstitutes at its mid section. Then it becomes occluded where it crosses the inguinal ligament with occlusion extending into the right common femoral artery. The right common femoral artery bifurcation shows arterial enhancement from reconstitution. The right SFA is widely patent with some mild disease at Kwesi's canal resulting in less than 50% diameter stenosis. The right popliteal artery is patent and there is three-vessel patency of the right tibioperoneal system. The left common femoral artery is widely patent and there is only mild disease of the left proximal SFA. The left popliteal artery and tibioperoneal system is widely patent to the foot. Abdomen: Normal heart size. Bibasilar atelectasis. Liver, gallbladder, pancreas, adrenal glands, spleen and kidneys are unremarkable. No bowel obstruction. Pelvis: Urinary bladder, rectosigmoid colon and prostate are within normal limits. No free fluid, free air or lymphadenopathy. No destructive bone lesions. Impression: 1. 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 2. Segmental occlusions of the right external iliac and right common femoral arteries. 3. Mild disease involves the superficial femoral arteries bilaterally without occlusive disease present. Both popliteal and tibioperoneal systems of both calves are widely patent. PROCEDURE INTERPRETED AT [facility] DEPARTMENT OF RADIOLOGY Final Report Signed by: Abdirizak Patrick M.D.
--- NOTE | 2016-12-11 15:08 | Vascular Surgery Consult Note ---
History of Present Illness Chief complaint: aortoiliac occlusion History of present illness: Mr. Murphy is a 45 year old male We will described a 45-year-old man I met yesterday with evidence of aortoiliac occlusive disease. His CT angiogram does confirm aortoiliac occlusion with the left iliac system being somewhat open the right side completely occluded as is the right common femoral. Due to the amount of plaquing in the left iliac system he would probably be better served with aortobifemoral bypass grafting. I have discussed this with Mr. Murphy explaining what that involves given him a craniofacial information booklet to review and I will review it further with him again tomorrow. In the meantime and discussion with Dr. Ruiz we still have the question of a chronic perirectal abscess or fistula in a note causing some chronic infection that must be addressed and cleared before we consider aortobifemoral bypassing. I also feel that we should do at least a preliminary cardiac evaluation as 45-year-old man with this level of atherosclerotic disease and long history of smoking is certainly at risk for coronary artery disease as well. I have explained this to Mr. Murphy and his mother who is a nurse that works at [employer] some years ago and I think they understand what our plan is and where we need to go. Home Medications Medication Instructions Recorded Confirmed Type No Known Home Medications [No 12/09/16 12/09/16 History Known Home Medications] Allergies Allergy/AdvReac Type Severity Reaction Status Date / Time No Known Allergies Allergy Unverified 02/03/16 09:59 Medical,Surgical,& Family Hx - Medical History Respiratory: History of: Asthma (as a child) Other: History of: Miscellaneous Medical Problems (left and right buttock cheek abscess) - Family History Family History: Reports;: Family Cancer, Family Diabetes, Family Hypertension - Social History Smoking Status: Current every day smoker Frequency of Alcohol Use: Occasionally Type of Drug Use: None Exam - Constitutional Vitals: Period Temp Pulse Resp BP Sys/Polanco Pulse Ox Last 24 Hr 96.6 F-98.0 F 58-73 18-20 121-151/75-96 97-100 Quality Measures - VTE Contraindication to Pharmacological VTE Prophylaxis: Clinical assessment deems Pt at low risk, no prophalaxis needed Results - Labs CBC & BMP: 12/11/16 04:52 12/11/16 04:52
[2016-12-11] MEDS: NICOTINE 21 MG/24 HR PATCH TRANSDERM SCH (16:26)
--- NOTE | 2016-12-11 17:09 | Event Note ---
12/11/2016 1700 hrs. Patient's CTA confirms he has proximal disease with fair runoff in the lower extremities. Dr. Villasenor has seen this and feels he is going require a open aortobifemoral bypass graft. Because of the risk of infection is concerned about the perirectal anal areas. We discussed the S and I am planning on taking the patient to surgery and try to open this up and get control and cultures and find out what we are dealing with see if we can get things under better control infection bolaños so that we can get him to surgery for the aortobifem. Spent time talking to the patient discussing the indications and the need for surgery and dictating to him the risk and complications of these procedures. He and his mother understands the procedure and risk and are agreeable to proceeding with surgery.
[2016-12-11] MEDS: ZALEPLON 5 MG CAPSULE PO PRN (23:11)
[2016-12-12] MEDS ORDERED: ceFAZolin 2,000 MG in PREMIX 1 EACH IV ONE (06:00)
[2016-12-12] MEDS: DEXTROSE 5% NACL 0.45% 1,000 ML IV SCH ×4 (08:10→20:04)
--- NOTE | 2016-12-12 08:20 | Cardiology Consult Note ---
Yo Palmer April RN, am scribing for, and in the presence of, Waqar Eden MD 08:20. Assessment and Plan - Time spent with patient Time spent with patient: Greater than 30 minutes (Due to assessment, planning, documentation, medication review) (1) Shortness of breath Status: Acute Assessment and plan: Get an EKG and echo cardiogram to assess his cardiac status. Current Visit: Yes (2) Tobacco abuse Status: Acute Assessment and plan: We did discuss the merits of tobacco cessation. Current Visit: Yes (3) Perirectal abscess Status: Acute Assessment and plan: Dr. Ruiz is following this. 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 Murphy is a 45 year old male who is never been seen by automation tender. He denies ever having had a stress test or heart catheterization done. He denies taking any home medications on a routine basis. He denies any history except that he had asthma as a child. He has had surgery for perirectal abscess. Family history is positive for mother with hypertension and cancer and diabetes on his mother's side of the family. He is unaware of any family history of heart disease. He is a current smoker, states he smokes a pack about every 3 days and has smoked for 25 years. Mr. Murphy was admitted for recurrent pain and swelling in the perirectal area. He reports he has had numbness in his back and bilateral lower extremities since March. This numbness occurs when standing or walking. This has greatly limited him in his activities. He also reports he has had shortness of breath at rest and with exertion for the last 2 months. Also has had episodes of dizziness, denies any syncope or near syncopal episodes. He reports he has fallen several times related to the numbness in his legs. CT of the pelvis done yesterday indicated a complete occlusion of the distal abdominal aorta and proximal bilateral common iliac arteries as well as the proximal right external iliac artery. Dr. Gil has been consult to evaluate this and has ordered a CTA of the aortofemoral runoff systems. Dr. Villasenor asked cardiology to see the patient to assist him for cardiovascular disease. He denies having had any chest pain or palpitations. His diastolic blood pressure has been slightly elevated since admission. We will do an EKG and echo. 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 He presented with shortness of breath and concern would be that this is somehow an anginal equivalent. I am going to check troponins and CK and CK- MB to see where we are. An echocardiogram is pending and we will review that. I have discussed in detail the particulars of this case and I have examined the patient and reviewed the patient's chart both current and old. I was directly involved in the patient's evaluation and management and I completely agree with Muna Ram RN regarding this patient's evaluation and treatment plan. CC: Kurtis Ruiz MD - Home Medications and Allergies Home Medications: Home Medications Medication Instructions Recorded Confirmed Type No Known Home Medications [No 12/09/16 12/09/16 History Known Home Medications] Allergies/Adverse Reactions: Allergies Allergy/AdvReac Type Severity Reaction Status Date / Time No Known Allergies Allergy Unverified 02/03/16 09:59 - Constitutional Constitutional: Present: as per HPI - EENT Eyes: Present: loss of vision. Absent: requires corrective lense Ears: Absent: decreased hearing, ear pain, tinnitus Nose, mouth and throat: Absent: dysphagia, epistaxis, headache(s), neck pain, sore throat - Cardiovascular Cardiovascular: Present: dyspnea, dyspnea on exertion, lightheadedness. Absent : chest pain at rest, chest pain with activity, diaphoresis, edema, radiating jaw, neck or arm pain, orthopnea, palpitations - Respiratory Respiratory: Present: cough, dyspnea, dyspnea on exertion. Absent: hemoptysis, wheezing - Gastrointestinal Gastrointestinal: Present: diarrhea. Absent: abdominal pain, constipation, hematemesis, hematochezia, melena, nausea, vomiting - Genitourinary Genitourinary: Absent: dysuria, hematuria - Musculoskeletal Musculoskeletal: Present: back pain, limited range of motion, muscle weakness - Neurological Neurological: Present: abnormal gait, dizziness, frequent falls, numbness. Absent: abnormal speech, confusion, headache(s), syncope - Psychiatric Psychiatric: Absent: anxiety, depression - Endocrine Endocrine: Present: fatigue - Hematologic/Lymphatic Hematologic/Lymphatic: Absent: easy bleeding, easy bruising Medical,Surgical,& Family Hx - Medical History Respiratory: History of: Asthma (as a child) Other: History of: Miscellaneous Medical Problems (left and right buttock cheek abscess) - Surgical History Additional Surgical History: For perirectal abscess - Family History Family History: Reports;: Family Cancer, Family Diabetes, Family Hypertension ( Mother) - Social History Smoking Status: Current every day smoker (Smokes a pack every 3 days, has smoked for 25 years) Have you smoked in the last 12 months: Yes Time spent discussing smoking cessation with patient: 3 to 10 minutes Frequency of Alcohol Use: Rarely Type of Drug Use: None Lives With:: Significant Other Functional capacity: uses cane/walker Physical Examination Vital Signs Temp Pulse Resp BP Pulse Ox 97.9 F 122 H 18 113/87 96 12/09/16 13:20 12/09/16 13:20 12/09/16 13:20 12/09/16 13:20 12/09/16 13:20 General: Present: Appears Well, No Apparent Distress HEENT: Present: PERRL, Mucus Membranes Moist Neck: Present: Supple Neck, Midline Trachea, No Bruit Cardiac: Present: Reg Rate and Rhythm, No Murmur Lungs: Present: Normal Breath Sounds, No Wheeze, Rales, Rhonchi Neuro: Present: Numbness (Back and lower extremities). Absent: Resting Tremor, Essential Tremor Abdomen: Present: Soft, Active Bowel Sounds, Non-Tender. Absent: Distended Skin: Present: Other (Perirectal abscess). Absent: Rash Gait: Present: Poor Gait Extremities: Present: No Edema, Normal Upper Extr. Pulses, Normal Lower Extr. Pulses. Absent: Normal Gait Result/EKG - Labs CBC & BMP: 12/11/16 04:52 12/11/16 04:52 Lab Results: I have reviewed the past 24 hour labs Labs: Laboratory Results - last 24 hr 12/11/16 12/11/16 12/11/16 04:52 04:52 04:52 WBC 6.5 RBC 4.37 Hgb 13.9 L Hct 41.1 L MCV 94.1 MCH 32 MCHC 33.8 RDW 12.9 Plt Count 232 MPV 11.1 Neut % (Auto) 47.5 Lymph % (Auto) 39.1 [place] % (Auto) 9.6 Eos % (Auto) 2.9 Baso % (Auto) 0.6 Neut # (Auto) 3.1 Lymph # (Auto) 2.6 [place] # (Auto) 0.6 Eos # (Auto) 0.2 Baso # (Auto) 0.0 Total Counted 100 Immature Gran % 0.3 Nucleated RBC % 0.0 Immature Gran # 0.02 Segmented Neutrophils 52 Band Neutrophils 2 Lymphocytes 34 Monocytes 9 Eosinophils 3 Nucleated RBCs # 0.00 Platelet Estimate Normal Immature Plt Fraction 0.0 Anisocytosis Slight Macrocytosis Slight INR 1.0 PT Patient/Control Mix 10.7 Circ Anticoag PTT 32.4 Sodium 138 Potassium 4.3 Chloride 103 Carbon Dioxide 31 Anion Gap 8.3 BUN 9 Creatinine 1.00 GFR Calculation 116 BUN/Creatinine Ratio 9.00 Glucose 87 Calculated Osmolality 272.7 L Calcium 9.4 Magnesium 2.2 - Diagnostic Findings Procedure: Chest x-ray: report reviewed by me Quality Measures - VTE Contraindication to Pharmacological VTE Prophylaxis: Clinical assessment deems Pt at low risk, no prophalaxis needed Meek Palmer Wesley, MD, personally performed the services described in this documentation, ascribed by Muna Ram RN in my presence, and it is both accurate and complete 820 .
[2016-12-12] MEDS ORDERED: PANTOPRAZOLE 40 MG TABLET PO ONE (08:28)
[2016-12-12] MEDS ORDERED: DIAZEPAM 5 MG TABLET PO ONE (08:28)
[2016-12-12 09:13] LABS: Troponin I Only < 0.015 NG/ML (0.00-0.045)
[2016-12-12] MEDS ORDERED: SUCCINYLCHOLINE 200 MG/10 ML VIAL ONE (10:49)
[2016-12-12] MEDS ORDERED: ROCURONIUM 100 MG/10 ML VIAL IV ONE (10:49)
[2016-12-12] MEDS ORDERED: LIDOCAINE 1% 5 ML VIAL ONE (10:49)
[2016-12-12] MEDS ORDERED: PROPOFOL 200 MG/20 ML VIAL IV ONE (10:49)
[2016-12-12] MEDS ORDERED: METHYLENE BLUE 10 ML VIAL IV ONE (11:05)
[2016-12-12] MEDS ORDERED: BUPIVACAINE LIPOSOMAL 20 ML/266 MG VIAL ONE (11:06)
--- NOTE | 2016-12-12 11:41 | Event Note ---
Mr. Murphy is inserted this morning so I will plan to check back with him on Thursday if not discharged If discharged and can see Mr. Murphy in office to plan his aortobifemoral bypass I will coordinate with Dr. Ruiz what his findings were in surgery
[2016-12-12] MEDS ORDERED: BUPIVACAINE 0.25% /EPI 10 ML VIAL ONE (12:10)
[2016-12-12] MEDS ORDERED: ONDANSETRON 4 MG/2 ML VIAL IV PRN (13:28)
[2016-12-12] MEDS ORDERED: HYDROmorphone 2 MG/1 ML VIAL IV PRN (13:28)
--- NOTE | 2016-12-12 13:37 | Anesthesia Post-Op ---
Anesthesia Post OP - Post Ansesthetic Evaluation Patient seen in post op: Yes Resp: within normal limits CV: within normal limits Mental: within normal limits Temp: within normal limits [id number]: within normal limits Nausea and Vomiting: within normal limits Pain: within normal limits
--- NOTE | 2016-12-12 13:38 | Operative Note ---
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 Ruiz Anesthesia was general with local Brief history: 45-year-old -I[place] male who comes back with recurrent perirectal abscess and this is his third return for this problem. The last 2 times he been able to get things drained but we felt like he had a fistula but we could never totally identify him completely to get control of it. 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 I have been unable to clearly find the internal opening of the fistula and brought him down to see if we could get this under control this time. He has 2 indurated areas on either gluteal area posteriorly that her small openings with what looks like fistula granulating tissue. Procedure: With patient in dorsal lithotomy position prepped and draped in sterile fashion timeout and antibiotics completed I carefully noted that he had some mucosal prolapse of his anal area at this time but that would reduce pretty easily. On further examination with a speculum in place there was at looks like posteriorly a ankle ulcer present in this area and they seem to be a possibility of a point where it drops in to the 2 cavity. He has on either cheek of his buttocks a opening with what looks like granulating tissue on the outside. When probed to go deep into this area and seemed to go underneath this area in the anal region. At that point I made attempts to get hook or curve into this area to bring it out to the lower part but I could not because there is a long tract. At that point I placed a catheter in 1 of the tracts and placed some methylene blue and we could see it come out through the opening in the posterior anal area and in the retractor around to the other cheek. I then kept the probe catheter in their mihaela x-ray and did several studies that need to confirmed the fistula tract that was present there. Did not seem to be any deep cavity abscess though at this point. With that completed then I made some attempts to try to get several different instruments Lacrimal probes as well as the regular probe to come in and out but is a long tortuous tract to get up underneath this area. Used guidewires to try to get the tracts communicate so I could get him under control. Finally got the left track under control was able get a red rubber catheter around that area. Had trouble with getting the track communicating with the us from the left side but finally got the arterial catheter come up through that area and had control of that. Once I did that I was able to excise the external part of the tracts at we infiltrated with some epinephrine with 0.5% Marcaine. Open this up towards the anal area opening it up through the skin subtenons tissue so we can track it up a little bit. Once I did that and I was able replaced the retrograde catheter in the arterial catheter with a vessel loop with the [place] vessel loop. I then secured the Vesseloops but tied with 2-0 Ethibond ties and Luo in place at this time to use light cauterization controlling bleeding in the wound beds at this point. Because this was deepened going through these muscles I did not was safe think it was safe to cut through this and needed the setons to have control this so we do not lose some anal sphincter control. Once I had these in control at this point and things as clean as I can get it packed the wounds with iodoform gauze along with bulky dressings and and applied the X Zuniga to the perianal area. we took patient recovery room. Estimated blood loss 20 cc sponge count correct 2 Drains 2 setons Vesseloops Complications none Condition stable satisfactory Anesthesia: GETA, local (0.5% Marcaine with epinephrine and X perill) Surgeon / Physician: Kurtis Ruiz Estimated blood loss: other (20 cc) Specimens: other (Cultures and tissue) Condition: stable Disposition: floor Results - Labs CBC & BMP: 12/11/16 04:52 12/11/16 04:52 Discharge Plan - Discharge Medications No Action No Known Home Medications [No Known Home Medications] - Follow Up or Referral - Forms/Instructions
[2016-12-12] MEDS ORDERED: hydrALAZINE 20 MG/1 ML VIAL ONE (13:40)
[2016-12-12] MEDS ORDERED: fentaNYL 100 MCG/2 ML VIAL ONE (13:40)
[2016-12-12] MEDS ORDERED: hydrALAZINE 20 MG/1 ML VIAL IV ONE (13:43)
[2016-12-12] MEDS ORDERED: LACTATED RINGERS 1,000 ML IV SCH (14:00)
[2016-12-12] MEDS ORDERED: DILTIAZEM 50 MG/10 ML VIAL IV ONE ×2 (14:13→14:16)
[2016-12-12] MEDS: SULFAMETHOX/TRIMETHOPRIM 800-160 MG TABLET PO SCH ×2 (15:36→20:07)
[2016-12-12] MEDS: DOCUSATE SODIUM 100 MG CAPSULE PO SCH ×2 (15:36→20:07)
[2016-12-12] MEDS: PANTOPRAZOLE 40 MG TABLET PO SCH (15:37)
[2016-12-12] MEDS: NICOTINE 21 MG/24 HR PATCH TRANSDERM SCH (15:43)
[2016-12-12] MEDS: KETOROLAC 15 MG/1 ML VIAL IV SCH ×2 (15:44→20:07)
--- NOTE | 2016-12-12 17:16 | Cardiology Progress Note ---
Yo Palmer April RN, am scribing for, and in the presence of, Waqar Eden MD 17:16. Assessment and Plan (1) Shortness of breath Status: Acute Assessment and plan: He denies any shortness of breath at this time. Current Visit: Yes (2) Tobacco abuse Status: Acute Assessment and plan: The merits of tobacco cessation have been discussed. Current Visit: Yes (3) Perirectal abscess Status: Acute Assessment and plan: Dr. Ruiz is following this. Current Visit: Yes Cardiology - PN: Subj Interval history: Frame Polisher: None SUMMARY: Mr. Murphy is a 45 year old male who is never been seen by healthcare administrator. He denies ever having had a stress test or heart catheterization done. He denies taking any home medications on a routine basis. He denies any history except that he had asthma as a child. He has had surgery for perirectal abscess. Family history is positive for mother with hypertension and cancer and diabetes on his mother's side of the family. He is unaware of any family history of heart disease. He is a current smoker, states he smokes a pack about every 3 days and has smoked for 25 years. Mr. Murphy was admitted for recurrent pain and swelling in the perirectal area. He reports he has had numbness in his back and bilateral lower extremities since March. This numbness occurs when standing or walking. This has greatly limited him in his activities. He also reports he has had shortness of breath at rest and with exertion for the last 2 months. Also has had episodes of dizziness, denies any syncope or near syncopal episodes. He reports he has fallen several times related to the numbness in his legs. CT of the pelvis done yesterday indicated a complete occlusion of the distal abdominal aorta and proximal bilateral common iliac arteries as well as the proximal right external iliac artery. Dr. Gil has been consult to evaluate this and has ordered a CTA of the aortofemoral runoff systems. Dr. Villasenor asked cardiology to see the patient to assist him for cardiovascular disease. He denies having had any chest pain or palpitations. His diastolic blood pressure has been slightly elevated since admission. We will do an EKG and echo. 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 He presented with shortness of breath and concern would be that this is somehow an anginal equivalent. I am going to check troponins and CK and CK-MB to see where we are. An echocardiogram is pending and we will review that. December 12, 2016: Mr. Murphy was seen today post surgery with Dr. Ruiz regarding his perirectal abscesses. He is drowsy, but easily arousable. Denies any chest pain or shortness of breath. Blood pressures were elevated when he first returned from surgery, but they have tapered down a little bit, most recent 142/ 81. Cardiac biomarkers this morning were normal. Patient has tolerated surgery reasonably well. His blood pressure is still up. This may all be related to smoking in peripheral vascular disease related to that. He needs cardiac screening at some point course this can wait until after his current illness is resolved. I have discussed in detail the particulars of this case and I have examined the patient and reviewed the patient's chart both current and old. I was directly involved in the patient's evaluation and management and I completely agree with Muna Ram RN regarding this patient's evaluation and treatment plan. Exam (Progress Note) - Constitutional Vitals: Period Temp Pulse Resp BP Sys/Polanco Pulse Ox Last 24 Hr 95.0 F-98.2 F 64-92 16-20 125-199/70-112 96-100 Exam: General: Present: Appears Well, No Apparent Distress HEENT: Present: PERRL, Mucus Membranes Moist Neck: Present: Supple Neck, Midline Trachea, No Bruit Cardiac: Present: Reg Rate and Rhythm, No Murmur Lungs: Present: Normal Breath Sounds, No Wheeze, Rales, Rhonchi Neuro: Present: Numbness (Back and lower extremities). Absent: Resting Tremor, Essential Tremor Abdomen: Present: Soft, Active Bowel Sounds, Non-Tender. Absent: Distended Skin: Present: Other (Perirectal abscess). Absent: Rash Gait: Present: Poor Gait Extremities: Present: No Edema, Normal Upper Extr. Pulses, Normal Lower Extr. Pulses. Absent: Normal Gait Result/EKG - Labs CBC & BMP: 12/11/16 04:52 12/11/16 04:52 Lab Results: I have reviewed the past 24 hour labs Labs: Laboratory Results - last 24 hr 12/12/16 08:30 Total Creatine Kinase 202 CK-MB (CK-2) 1.3 Troponin I < 0.015 Quality Measures - VTE Contraindication to Pharmacological VTE Prophylaxis: Clinical assessment deems Pt at low risk, no prophalaxis needed IMeek Wesley, MD, personally performed the services described in this documentation, ascribed by Muna Ram RN in my presence, and it is both accurate and complete 716 .
--- NOTE | 2016-12-12 18:50 | ECHO Report ---
Anh Murphy Exam Date: 12/11/2016 11:56 Referring Physician: Technologist: Corrine Nicholson RDCS Age: 45 Ht (in): 67 Wt (lb): 169 Gender: M Exam Location: [facility] Echo Indications: Aortoilliac occlusion, Shortness of breath, Recurrent perirectal abscess, Nicotine dependence, cigarettes, uncomplicated, Possible pre-op BP: 140 / 96 HR: 59 Rhythm: Sinus Technical Quality: Fair IMPRESSIONS Normal LV systolic and diastolic function, ejection fraction 60%. Mild concentric left ventricular hypertrophy. Mild mitral, tricuspid and pulmonic regurgitation. MEASUREMENTS (Male / Female) Normal Values 2D ECHO LV Diastolic Diameter PLAX 4.3 cm 4.2 - 5.9 / 3.9 - 5.3 cm LV Systolic Diameter PLAX 3.0 cm LV Fractional Shortening PLAX 30.2 % IVS Diastolic Thickness 1.2 cm 0.6 - 1.0 / 0.6 - 0.9 cm LVPW Diastolic Thickness 1.2 cm 0.6 - 1.0 / 0.6 - 0.9 cm RV Internal Dim ED PLAX 3.4 cm Aortic Root Diameter 3.0 cm LA Systolic Diameter LX 3.6 cm 3.0 - 4.0 / 2.7 - 3.8 cm DOPPLER TR Peak Velocity 296.0 cm/s TR Peak Gradient 35.0 mmHg FINDINGS Left Ventricle Normal left ventricular cavity size. Mild left ventricular hypertrophy. Left ventricular ejection fraction is estimated at 60 %. Right Ventricle The right ventricle is normal in size and function. Right Atrium Normal size. Left Atrium Normal size. Mitral Valve Mildly thickened mitral valve. Trace to mild mitral valve regurgitation. Aortic Valve Morphologically normal aortic valve without significant sclerosis or stenosis. There is no aortic regurgitation. Tricuspid Valve Morphologically normal tricuspid valve. Trace to mild tricuspid valve regurgitation. Tricuspid regurgitation velocities suggest a PAP of 45 mmHg. Pulmonic Valve Morphologically normal pulmonic valve. Mild pulmonary valve regurgitation. Pericardium Normal pericardium without effusion. Aorta Normal ascending aorta dimension. Malena Valenzuela MD (Electronically Signed) Final Date: 12 December 2016 18:49
[2016-12-12] MEDS: ceFAZolin 2,000 MG in PREMIX 1 EACH IV SCH (20:07)
[2016-12-12] MEDS: ZALEPLON 5 MG CAPSULE PO PRN (22:17)
[2016-12-13] MEDS: DEXTROSE 5% NACL 0.45% 1,000 ML IV SCH ×2 (00:56→08:13)
[2016-12-13] MEDS: KETOROLAC 15 MG/1 ML VIAL IV SCH ×4 (01:40→19:09)
[2016-12-13 04:10] LABS: Basophils % 0.4 % (0.0-0.8); Eosinophils % 0.1 % (0.00-10.9); Hematocrit 40.5 VOL% (42.0-52.0); Hemoglobin 13.8 GM/DL (14.0-18.0); Immature Granulocytes % 0.4 %; Immature Granulocytes Absolute 0.03 #; Lymphocytes # 0.8 10*3/uL (1.4-4.0); Lymphocytes % 9.5 % (21.2-54.2); Mean Corpuscular HGB Conc 34.1 GM/DL (32-36); Mean Corpuscular Hemoglobin 32 PG (27-34); Mean Corpuscular Volume 92.7 FL (87-102); Monocytes # 0.6 10*3/uL (0.11-0.8); Neutrophils # 6.8 10*3/uL (1.4-7.4); Neutrophils % 82.6 % (38.7-73.9); Platelet Count 196 T/CUMM (130-400); Red Blood Count 4.37 MC/CUMM (3.8-5.5); Red Cell Distribution Width 12.9 % (9.3-17.3); White Blood Count 8.2 T/CUMM (4-12)
[2016-12-13] MEDS: ceFAZolin 2,000 MG in PREMIX 1 EACH IV SCH (04:33)
[2016-12-13 04:36] LABS: Calcium 8.9 MG/DL (8.5-10.1); Osmolality,Calculated 273.7 MOS/KG (273-304); Potassium 3.9 MMOL/L (3.5-5.1)
[2016-12-13] MEDS: ENOXAPARIN 40 MG/0.4 ML SYRINGE SUBCUT SCH (08:19)
[2016-12-13] MEDS: NICOTINE 21 MG/24 HR PATCH TRANSDERM SCH (08:20)
[2016-12-13] MEDS: SULFAMETHOX/TRIMETHOPRIM 800-160 MG TABLET PO SCH ×2 (08:21→20:07)
[2016-12-13] MEDS: PANTOPRAZOLE 40 MG TABLET PO SCH (08:21)
[2016-12-13] MEDS: DOCUSATE SODIUM 100 MG CAPSULE PO SCH ×2 (08:22→20:07)
--- NOTE | 2016-12-13 09:08 | Cardiology Progress Note ---
Assessment and Plan (1) Shortness of breath Status: Acute Assessment and plan: He denies any shortness of breath at this time. 12/13: He has been instructed to stop smoking. We will schedule have him seen at our office for screening in roughly 1 month. Current Visit: Yes (2) Tobacco abuse Status: Acute Assessment and plan: The merits of tobacco cessation have been discussed. Current Visit: Yes (3) Perirectal abscess Status: Acute Assessment and plan: Dr. Ruiz is following this. Current Visit: Yes Cardiology - PN: Subj Interval history: Patient is stable post procedure. We will sign off. He will need cardiac evaluation and screening at some point in the future. He has no symptoms to suggest ischemic heart disease.. Please reconsult as needed. Exam (Progress Note) - Constitutional Vitals: Period Temp Pulse Resp BP Sys/Polanco Pulse Ox Last 24 Hr 97.1 F-99.7 F 72-92 16-20 108-199/57-112 95-100 Exam: General: Present: Appears Well, No Apparent Distress HEENT: Present: PERRL, Mucus Membranes Moist Neck: Present: Supple Neck, Midline Trachea, No Bruit Cardiac: Present: Reg Rate and Rhythm, No Murmur Lungs: Present: Normal Breath Sounds, No Wheeze, Rales, Rhonchi Neuro: Present: Numbness (Back and lower extremities). Absent: Resting Tremor, Essential Tremor Abdomen: Present: Soft, Active Bowel Sounds, Non-Tender. Absent: Distended Skin: Present: Other (Perirectal abscess). Absent: Rash Gait: Present: Poor Gait Extremities: Present: No Edema, Normal Upper Extr. Pulses, Normal Lower Extr. Pulses. Absent: Normal Gait Result/EKG - Labs CBC & BMP: 12/13/16 03:56 12/13/16 03:56 Labs: Laboratory Results - last 24 hr 12/12/16 12/13/16 12/13/16 08:30 03:56 03:56 WBC 8.2 RBC 4.37 Hgb 13.8 L Hct 40.5 L MCV 92.7 MCH 32 MCHC 34.1 RDW 12.9 Plt Count 196 MPV 11.0 Neut % (Auto) 82.6 H Lymph % (Auto) 9.5 L [place] % (Auto) 7.0 Eos % (Auto) 0.1 Baso % (Auto) 0.4 Neut # (Auto) 6.8 Lymph # (Auto) 0.8 L [place] # (Auto) 0.6 Eos # (Auto) 0.0 Baso # (Auto) 0.0 Immature Gran % 0.4 Nucleated RBC % 0.0 Immature Gran # 0.03 Nucleated RBCs # 0.00 Immature Plt Fraction 0.0 Sodium 138 Potassium 3.9 Chloride 107 Carbon Dioxide 23 Anion Gap 11.9 BUN 9 Creatinine 1.00 GFR Calculation 116 BUN/Creatinine Ratio 9.00 Glucose 104 Calculated Osmolality 273.7 Calcium 8.9 Total Creatine Kinase 202 CK-MB (CK-2) 1.3 Troponin I < 0.015 Quality Measures - VTE Contraindication to Pharmacological VTE Prophylaxis: Clinical assessment deems Pt at low risk, no prophalaxis needed
--- NOTE | 2016-12-13 09:17 | Event Note ---
12/13/2016 Came in this morning to specifically speak to the patient about findings at time of surgery. When surgery was completed the mother was not in the room at that time so I had no way to communicate with her or him at the time to really let them know what was going on. He seems to understand the situation that we now have the 2 fistula tracts isolated and with setons around him. He understands the need for sitz bath and the fact will have to tighten these down as time goes on to try to get them to cut through this tissue slowly so that we will not lose any bowel control. Will be glad to speak to his mom at any time whenever she is available. Certainly we have this process starting to get under control so that he can eventually get back for his vascular surgery.
[2016-12-14] MEDS: ZALEPLON 5 MG CAPSULE PO PRN ×2 (00:02→22:18)
[2016-12-14] MEDS: KETOROLAC 15 MG/1 ML VIAL IV SCH ×4 (01:08→19:18)
[2016-12-14] MEDS: DEXTROSE 5% NACL 0.45% 1,000 ML IV SCH ×3 (04:45→23:10)
[2016-12-14] MEDS: ENOXAPARIN 40 MG/0.4 ML SYRINGE SUBCUT SCH (10:02)
[2016-12-14] MEDS: SULFAMETHOX/TRIMETHOPRIM 800-160 MG TABLET PO SCH ×2 (10:02→20:16)
[2016-12-14] MEDS: PANTOPRAZOLE 40 MG TABLET PO SCH (10:02)
[2016-12-14] MEDS: NICOTINE 21 MG/24 HR PATCH TRANSDERM SCH (10:03)
[2016-12-14] MEDS: DOCUSATE SODIUM 100 MG CAPSULE PO SCH ×2 (10:03→20:16)
--- NOTE | 2016-12-14 11:08 | Event Note ---
Stable. No complaints. Setons appear to be in place. Some drainage. Will continue current regimen. His pain appears to be well controlled.
[2016-12-14] MEDS: SODIUM HYPOCHLORITE 0.25% IRRIG 473 ML BOTTLE TOP SCH (20:08)
[2016-12-15] MEDS: KETOROLAC 15 MG/1 ML VIAL IV SCH ×2 (01:12→08:06)
[2016-12-15] MEDS: ENOXAPARIN 40 MG/0.4 ML SYRINGE SUBCUT SCH (08:05)
[2016-12-15] MEDS: SULFAMETHOX/TRIMETHOPRIM 800-160 MG TABLET PO SCH ×2 (08:06→21:20)
[2016-12-15] MEDS: PANTOPRAZOLE 40 MG TABLET PO SCH (08:06)
[2016-12-15] MEDS: NICOTINE 21 MG/24 HR PATCH TRANSDERM SCH (08:06)
[2016-12-15] MEDS: DOCUSATE SODIUM 100 MG CAPSULE PO SCH ×2 (08:06→21:20)
[2016-12-15] MEDS: CIPROFLOXACIN 500 MG TABLET PO SCH ×2 (08:06→21:20)
--- NOTE | 2016-12-15 12:22 | Pathology Report from [facility] ---
[facility] [place] ACCESSION # : [id number] PATIENT NAME : Kelly Murphy ORDERING DR : ARABELLA GALICIA MD CLINICAL HX: Perirectal abscess POST-OP DX: Same SPECIMEN INFO: Fistula tract GROSS DESCRIPTION: The specimen is received in formalin labeled with the patients name and consists of two brown-pink tissue fragments measuring 1.6 x 1.2 cm collectively. Sectioned and submitted entirely in one cassette. DIAGNOSIS FOR KELLY MURPHY: FISTULA TRACT: Ulceration, acute and chronic inflammation, fibrosis, squamous mucosal hyperplasia. COLLECTED DATE: 12/12/2016 [facility] REPORT DATE: 12/15/2016 ELECTRONICALLY SIGNED BY: Lauren Crook M.D. 12/15/2016 - 10:44:28 [facility]
--- NOTE | 2016-12-15 12:23 | Event Note ---
I spoke with Dr. Ruiz and subsequent with Mr. Murphy. It appears that he is now get adequate drainage of his recurrent perirectal abscess and fistula in ano with setons in place. My thoughts are to wait 2-3 weeks in order to make certain all infection is clearing and then plan on the aortobifemoral bypassing. I have explained this to Mr. Murphy and I will go ahead and tentatively make an appointment for me to see him in the office in 2-3 weeks
[2016-12-15] MEDS: DEXTROSE 5% NACL 0.45% 1,000 ML IV SCH ×2 (14:33→16:18)
[2016-12-15] MEDS: SODIUM HYPOCHLORITE 0.25% IRRIG 473 ML BOTTLE TOP SCH ×2 (16:56→21:18)
--- NOTE | 2016-12-15 22:09 | General Surgery Progress Note ---
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 12/10/2016 Little change in this area at this time still bit a tender and some mild drainage. CT scan did not show any much in the region of the perirectal region to suggest abscess or anything. 12/11/2016. Still unclear how significant this process is in the perirectal region. Could consider exam under anesthesia with possible drainage or surgical excision if we could find the internal fistula opening. Will discuss with Dr. Gil about his needs to get him ready for any type of grafting. 12/15/2016 Pt is better with less pain. minable drainage and setons in place. He understands the treatment plan. Dr. Villasenor will see today. Will change to po antibiotics and send home. Dr. Villasenor will set up his vascular surgery. Poss home tomorrow. Current Visit: No (2) Claudication Status: Acute Assessment and plan: Impression: Claudication Plan: Lower arterial vascular studies 12/10/2016. Patient's claudication is revealed the waveforms are very poor in the lower extremities and do not have any pressures at this point but there is very little in the waveform itself. Abdomen CT pelvis for the purpose of looking at the anal area to see what might be going on there and this revealed a complete occlusion of the distal aorta right iliac vessels. Will consult vascular at this time. 12/11/2016. Dr. Villasenor has seen the patient and ordered a CTA today. Results of that is not available at this point. Will discuss further with him plans for surgery Current Visit: Yes Subjective Patient reports: Present: feels better, afebrile Exam - Constitutional Vitals: Period Temp Pulse Resp BP Sys/Polanco Pulse Ox Last 24 Hr 97.6 F-98.7 F 60-74 18-24 130-159/75-90 97-100 General appearance: mild distress - Head Head exam: Present: normal inspection - ENT ENT exam: Present: normal exam - Neck Neck exam: Present: normal inspection - Respiratory Respiratory exam: Present: clear to auscultation bilaterally - Cardiovascular Cardiovascular exam: Present: RRR - GI/Abdominal GI/Abdominal exam: Present: hypoactive bowel sounds, soft. Absent: tenderness - Anus/Rectum Anus/Rectum: other (Setons in place with mild drainage.) - Extremities Exam Extremities exam: Present: normal inspection - Back Exam Back exam: Present: normal inspection - Neurological Exam Neurological exam: Present: alert, oriented X3, CN II-XII intact - Skin Skin exam: Present: normal color, warm, dry Results - Labs CBC & BMP: 12/13/16 03:56 12/13/16 03:56 Lab Results: I have reviewed the past 24 hour labs Quality Measures - VTE Contraindication to Pharmacological VTE Prophylaxis: Clinical assessment deems Pt at low risk, no prophalaxis needed Specialty Discharge - Follow Up or Referrals Follow up with: Josh Villasenor MD [Physician] - 12/30/16 2:15 pm Waqar Eden MD [Physician] - 12/18/16 8:15 am (for stress test--f/u with dr eden in office 12/24 @ 8:20)
[2016-12-16] MEDS: DEXTROSE 5% NACL 0.45% 1,000 ML IV SCH ×2 (05:39→20:00)
[2016-12-16] MEDS: ENOXAPARIN 40 MG/0.4 ML SYRINGE SUBCUT SCH (08:53)
[2016-12-16] MEDS: DOCUSATE SODIUM 100 MG CAPSULE PO SCH ×2 (08:54→21:11)
[2016-12-16] MEDS: PANTOPRAZOLE 40 MG TABLET PO SCH (08:54)
[2016-12-16] MEDS: CIPROFLOXACIN 500 MG TABLET PO SCH ×2 (08:54→21:11)
[2016-12-16] MEDS: NICOTINE 21 MG/24 HR PATCH TRANSDERM SCH (08:54)
[2016-12-16] MEDS: SULFAMETHOX/TRIMETHOPRIM 800-160 MG TABLET PO SCH ×2 (08:54→21:11)
[2016-12-16] MEDS: SODIUM HYPOCHLORITE 0.25% IRRIG 473 ML BOTTLE TOP SCH ×2 (10:43→22:00)
[2016-12-16] MEDS: ZALEPLON 5 MG CAPSULE PO PRN (21:20)
[2016-12-17 07:23] VITALS: BP 137/87
--- NOTE | 2016-12-17 08:38 | Discharge Summary ---
Hospital Course - Hospital Course Hospital Course: Discharge summary: Discharge diagnoses: 1. Bilateral anal fistulas 2. Aortic iliac occlusive disease with claudication Surgeon Dr. Ruiz Brick Burner Dr. Gil Procedure: Rectal exam under anesthesia with fistulotomy and placement of setons Brief summary: 45-year-old -[place] male who we have been following for recurrent perirectal abscesses it was felt likely related to a fistula but could never find the internal opening. It had 2 other surgeries for this process and came back in because of increasing pain and discomfort in the rectal area. He has had some induration there and some drainage he noted. He came to the emergency room side with went ahead and admitted him so that I can do a better exam and see if I can find the openings especially the internal opening. While in the emergency room though he began to ask a question about his walking where he can only walk about 2 blocks before his legs would ache so much he has to stop and sit down. His symptom of claudication the fact that he was a smoker I was of concern so we put him in. With his creatinine okay went ahead and did a CTA on him that indicated that he had bilateral aortic occlusive disease. Apparently has some good runoff in the lower part of the legs but this is all proximal disease. Dr. Villasenor was consulted he reviewed the films and felt like he is probably going to have to have an aortic valve failed bypass graft. Because of the rectal problem and potential infection he asked that we deal with this fistula problem first before they plan any surgery on this vessels. At that point we took him to surgery which time under anesthesia I was able to a good rectal exam and ended up finding the internal opening to these 2 fistula tract they are count the fistula opening externally is on the right and left gluteal area and a are along the tract they go into this anal area. I was able to easily get a seton placed through the area of the left fistula tract with the right was extremely difficult but finally with great deal of effort was able to get that seton placed also. Hoping this is going get things under control and little over time will tighten the seton see if we can get this to cut through this area. It is going around the major muscles so we had to be careful and slowly tied down in order not to create incontinence problems. Patient has been tolerating care fairly well without problems and he is very optimistic that he can handle sitz baths without unusual problems. Dr. Villasenor is pleased with this and that will go ahead and plan to discharge him and follow with Dr. Gil for the purpose of setting up something for this aortobifem bypass graft. In the meantime we will continue to treat his fistula with sitz bath and some antibiotics for the next week or so and plan to tighten the setons up about every 2 weeks to slowly cut through this muscle. - Time spent with patient Time with patient DS: Greater than 30 minutes Time spent discussing smoking cessation with patient: 3 to 10 minutes Diagnosis - Discharge Diagnosis (1) Perirectal abscess Status: Chronic (2) Claudication Status: Chronic (3) Perirectal abscess Status: Acute Specialty Discharge - Follow Up or Referrals Follow up with: Josh Villasenor MD [Physician] - 12/30/16 2:15 pm Waqar Eden MD [Physician] - 12/18/16 8:15 am (for stress test--f/u with dr eden in office 12/24 @ 8:20) Kurtis Ruiz MD [Physician] - 2 Weeks - Speciality Discharge Instructions Surgery Instructions: 1. May drive without any problems and certainly can go up and down stairs. 2. Sitz bath at least twice a day and more often as needed. 3. Maintain present wound care and dressings in the perirectal area. 4. Important not to be smoking at all at this time. Discharge Plan - Discharge Data Disposition: Disch To Home/Self Care Condition at Discharge: Stable Discharge Diet: advance to your usual diet Activity: increase activity as tolerated Hygiene: no restrictions Weight Bearing at Discharge: full weight bearing Driving: no restrictions Contact your physician if you experience:: fever over 101, Redness or swelling, Bleeding, pain uncontrolled by pain medications Wound / Dressing Care Instructions: Wound care to the fistulas and setons of the perirectal area twice a day. 1. Shower using Hibiclens is to clean this area. 2. Then set and use a sitz bath to help further clean this area. 3. Use a sitz bath and the Parker baby wipes clean with throughout the day as needed especially after any bowel movement. 4. May use a little Nupercainal ointment in the area for itching and burning. 5. May need to clean with moist baby wipes. 6. Keep a light dressing in the area and use brief underwear is to hold dressings in place. 7. Expect some drainage and some itching and burning with this process. - Discharge Medications New Acetaminophen Tab [Tylenol Tab] 650 mg PO Q6H PRN tablet PRN Reason: Pain Mild (1-3) And/Or Fever Ciprofloxacin Tab [Cipro Tab] 500 mg PO Q12HR #20 tablet Docusate Sodium Cap [Colace Cap] 100 mg PO DAILY #30 capsule Nicotine 21 mg/24 Hr Patch [Nicoderm CQ 21 mg/24 hr Patch] 1 patch TRANSDERM DAILY #30 patch Dibucaine 1% Oint [Nupercainal 1% Oint] 1 applic TOP QID #28 gm Sulfameth/Trimeth 800-160 Tab [Bactrim DS Tab] 1 tablet PO BID #20 tablet HYDROcodone/ACETAMIN 7.5-325 [[place] 7.5-325] 1 tablet PO Q6H PRN #30 tablet PRN Reason: Pain Mild To Moderate (1-7) - Follow Up or Referral Follow Up: Josh Villasenor MD [Physician] - 12/30/16 2:15 pm Waqar Eden MD [Physician] - 12/18/16 8:15 am (for stress test--f/u with dr eden in office 12/24 @ 8:20) - Forms/Instructions Exam - Constitutional Vitals: Period Temp Pulse Resp BP Sys/Polanco Pulse Ox Last 24 Hr 97.0 F-97.9 F 56-81 16-20 127-144/64-87 96-100 General appearance: mild distress - Head Head exam: Present: normal inspection - ENT ENT exam: Present: normal exam - Neck Neck exam: Present: normal inspection - Respiratory Respiratory exam: Present: clear to auscultation bilaterally - Cardiovascular Cardiovascular exam: Present: regular rate and rhythm - GI/Abdominal GI/Abdominal exam: Present: hypoactive bowel sounds, soft, other (Setons in place and the elinor-rectal area looking clean and dry). Absent: tenderness - Extremities Exam Extremities exam: Present: normal inspection - Back Exam Back exam: Present: normal inspection - Neurological Exam Neurological exam: Present: alert, oriented X3, CN II-XII intact - Psychiatric Psychiatric exam: Present: normal affect, normal mood - Skin Skin exam: Present: normal color, warm, dry DS: Provider Date of admission: 12/09/16 16:02 Primary care physician: . No PCP Attending physician on admission: Kurtis Ruiz MD Consults: 12/10/16 11:30 Consult to Physician [CONS] Routine Comment: Patient with distal aortic and iliac occlusion Consulting Provider: Josh Villasenor Consulting Provider Notified: Yes When should Consulting Provider be notified: Now Person Notified: swetha called Date Notified: 12/10/16 Time Notified: 12:32 Consult Notification Comment: Patient who we have been treating for some recurrent anal fistulas in the perianal area comes in with some complaint of pain in this area and little bit of drainage. Complained of claudication and we have done while working patient up he CT that shows occlusion of the aorta and iliac vessels. 12/11/16 09:11 Consult to Physician [CONS] Routine Comment: Consulting Provider: Cardiology - [facility] Consulting Provider Notified: Yes When should Consulting Provider be notified: Now Person Notified: angelica crawford Date Notified: 12/11/16 Time Notified: 09:22 Consult Notification Comment: tina knows about 12/13/16 09:44 Consult to Case Mgmt/Social Srvs [CONS] Routine Reason for Case Mgmt/Social Srvs: Discharge Planning Consult Comment: patient is going to need disability set up Discharging clinician: Kurtis Ruiz MD Expected date of discharge: 12/17/16
[2016-12-17] MEDS: ENOXAPARIN 40 MG/0.4 ML SYRINGE SUBCUT SCH (09:26)
[2016-12-17] MEDS: PANTOPRAZOLE 40 MG TABLET PO SCH (09:27)
[2016-12-17] MEDS: DOCUSATE SODIUM 100 MG CAPSULE PO SCH (09:27)
[2016-12-17] MEDS: CIPROFLOXACIN 500 MG TABLET PO SCH (09:27)
[2016-12-17] MEDS: SULFAMETHOX/TRIMETHOPRIM 800-160 MG TABLET PO SCH (09:27)
[2016-12-17] MEDS: NICOTINE 21 MG/24 HR PATCH TRANSDERM SCH (09:28)
[2016-12-17] MEDS: SODIUM HYPOCHLORITE 0.25% IRRIG 473 ML BOTTLE TOP SCH (09:34)
[2016-12-17] MEDS: DEXTROSE 5% NACL 0.45% 1,000 ML IV SCH (11:08)
== END 2016-12-17 10:50 | disposition home or self-care (01) | DRG 348 ==
LOC: N.ED 13:08 → N.EDINP 16:02 → N.3E 17:42
PROVIDERS: ADMIT Specialist; ATTEND Specialist

== ENCOUNTER 2017-04-21 06:47 | Inpatient (IN) ==
[2017-04-20 17:29] LABS: Basophils % 0.5 % (0.0-0.8); Eosinophils # 0.1 10*3/uL (0.0-0.87); Eosinophils % 1.1 % (0.00-10.9); Hematocrit 40.3 VOL% (42.0-52.0); Hemoglobin 13.8 GM/DL (14.0-18.0); Immature Granulocytes % 0.2 %; Immature Granulocytes Absolute 0.02 #; Lymphocytes # 2.6 10*3/uL (1.4-4.0); Lymphocytes % 29.3 % (21.2-54.2); Mean Corpuscular HGB Conc 34.2 GM/DL (32-36); Mean Corpuscular Hemoglobin 31 PG (27-34); Mean Corpuscular Volume 91.6 FL (87-102); Mean Platelet Volume 10.5 FL (9.6-12.0); Monocytes # 0.7 10*3/uL (0.11-0.8); Monocytes % 7.5 % (1.7-12.7); Neutrophils # 5.4 10*3/uL (1.4-7.4); Neutrophils % 61.4 % (38.7-73.9); Platelet Count 238 T/CUMM (130-400); Red Cell Distribution Width 13.1 % (9.3-17.3); White Blood Count 8.8 T/CUMM (4-12)
[2017-04-20 17:39] LABS: PT Patient Result 10.4 SECS
[2017-04-20 17:53] LABS: Alanine Aminotransferase 23 U/L (16-61); Albumin 3.8 G/DL (3.4-5.0); Alkaline Phosphatase 144 U/L (45-117); Aspartate Amino Transferase 21 U/L (0-37); Bilirubin,Total < 0.39 MG/DL (0.2-1.0); Blood Urea Nitrogen 11 MG/DL (7-18); Calcium 9.4 MG/DL (8.5-10.1); Glucose 93 MG/DL (74-106); Osmolality,Calculated 275.5 MOS/KG (273-304); Potassium 4.2 MMOL/L (3.5-5.1); Sodium 139 MMOL/L (136-145); Total Protein 7.5 G/DL (6.4-8.3)
[2017-04-21] MEDS: LACTATED RINGERS 1,000 ML IV SCH (07:50)
[2017-04-21] MEDS ORDERED: ceFAZolin 1,000 MG in SYRINGE 1 EACH IV ONE (08:00)
[2017-04-21] MEDS ORDERED: ceFAZolin 1,000 MG VIAL ONE (08:02)
[2017-04-21] MEDS ORDERED: DIAZEPAM 5 MG TABLET PO ONE (08:38)
[2017-04-21] MEDS ORDERED: FAMOTIDINE 20 MG TABLET PO ONE (08:38)
[2017-04-21] MEDS ORDERED: FAMOTIDINE 20 MG TABLET ONE (08:43)
[2017-04-21] MEDS ORDERED: DIAZEPAM 5 MG TABLET ONE (08:43)
[2017-04-21] MEDS ORDERED: REGADENOSON 0.4 MG/5 ML SYRINGE IV ONE (12:20)
[2017-04-22] MEDS ORDERED: FAMOTIDINE 20 MG TABLET PO ONE (05:48)
[2017-04-22] MEDS ORDERED: DIAZEPAM 5 MG TABLET PO ONE (05:48)
[2017-04-22] MEDS ORDERED: ceFAZolin 1,000 MG in SYRINGE 1 EACH IV ONE (06:00)
[2017-04-22] MEDS ORDERED: NITROGLYCERIN DRIP 50 MG/250 ML BOTTLE IV ONE ×2 (06:59→14:16)
[2017-04-22] MEDS ORDERED: PHENYLEPHRINE DRIP 20 MG/250 ML PREMIX IV ONE (06:59)
[2017-04-22] MEDS ORDERED: VANCOMYCIN 500 MG VIAL ONE (09:35)
[2017-04-22] MEDS ORDERED: TISSUE ADHESIVE 1 EACH APPLICATOR TOP ONE (09:35)
[2017-04-22] MEDS ORDERED: HEPARIN 5,000 UNIT/1 ML VIAL ONE (09:35)
[2017-04-22] MEDS: LACTATED RINGERS 1,000 ML IV SCH ×2 (09:50→17:15)
[2017-04-22] MEDS ORDERED: PANTOPRAZOLE 40 MG VIAL IV ONE (11:13)
[2017-04-22] MEDS ORDERED: MANNITOL 12.5 GM/50 ML VIAL IV ONE ×2 (12:01→14:14)
[2017-04-22] MEDS ORDERED: ALBUMIN 5% 12.5 GM/250 ML VIAL IV ONE ×2 (12:14→14:14)
[2017-04-22] MEDS ORDERED: ONDANSETRON 4 MG/2 ML VIAL IV PRN ×2 (14:03→14:53)
[2017-04-22] MEDS ORDERED: HEPARIN 10,000 UNIT/10 ML VIAL ONE (14:14)
[2017-04-22] MEDS ORDERED: SEVOFLURANE 1 UNIT/15 MINUTE INH ONE (14:14)
[2017-04-22] MEDS ORDERED: PROPOFOL 200 MG/20 ML VIAL IV ONE (14:14)
[2017-04-22] MEDS ORDERED: KETAMINE 500 MG/10 ML VIAL ONE (14:15)
[2017-04-22] MEDS ORDERED: HYDROmorphone 2 MG/1 ML VIAL ONE ×2 (14:15→14:39)
[2017-04-22] MEDS ORDERED: MIDAZOLAM 2 MG/2 ML VIAL ONE ×2 (14:15)
[2017-04-22] MEDS ORDERED: GLYCOPYRROLATE 0.4 MG/2 ML VIAL ONE (14:16)
[2017-04-22] MEDS ORDERED: ONDANSETRON 4 MG/2 ML VIAL ONE ×2 (14:16→14:39)
[2017-04-22] MEDS ORDERED: METOPROLOL TARTRATE 5 MG/5 ML VIAL IV ONE (14:16)
[2017-04-22] MEDS ORDERED: SUCCINYLCHOLINE 200 MG/10 ML VIAL ONE (14:16)
[2017-04-22] MEDS ORDERED: LABETALOL 100 MG/20 ML VIAL IV ONE (14:16)
[2017-04-22] MEDS ORDERED: ROCURONIUM 100 MG/10 ML VIAL IV ONE (14:16)
[2017-04-22] MEDS ORDERED: DEXAMETHASONE 10 MG/1 ML VIAL ONE (14:16)
[2017-04-22] MEDS ORDERED: SODIUM CHLORIDE 0.9% 1,000 ML IV ONE (14:16)
[2017-04-22] MEDS ORDERED: PROTAMINE SULFATE 50 MG/5 ML VIAL IV ONE (14:16)
[2017-04-22] MEDS ORDERED: LACTATED RINGERS 3,000 ML IV ONE (14:16)
[2017-04-22] MEDS ORDERED: SODIUM CHLORIDE 0.9% 500 ML IV ONE (14:17)
[2017-04-22] MEDS ORDERED: CIPROFLOXACIN INJ 400 MG in PREMIX 1 EACH IV SCH (14:30)
[2017-04-22] MEDS: HYDROmorphone 2 MG/1 ML VIAL IV PRN ×6 (14:47→22:23)
[2017-04-22 14:48] LABS: Hematocrit 32.9 VOL% (42.0-52.0); Hemoglobin 11.5 GM/DL (14.0-18.0)
[2017-04-22 15:16] LABS: Calcium 8.1 MG/DL (8.5-10.1); Osmolality,Calculated 277.7 MOS/KG (273-304); Potassium 3.6 MMOL/L (3.5-5.1)
[2017-04-22] MEDS ORDERED: NITROPRUSSIDE 50 MG/2 ML VIAL ONE (16:59)
[2017-04-22] MEDS: NITROPRUSSIDE 100 MG in DEXTROSE 5% 246 ML IV SCH (17:15)
[2017-04-22] MEDS: ALUMINUM/MAGNES/SIMETH MAX STR 30 ML UDCUP NG SCH ×3 (17:18→22:34)
[2017-04-22] MEDS: CIPROFLOXACIN INJ 400 MG in PREMIX 1 EACH IV SCH (18:30)
[2017-04-23] MEDS: HYDROmorphone 2 MG/1 ML VIAL IV PRN ×5 (01:34→19:02)
[2017-04-23] MEDS: ALUMINUM/MAGNES/SIMETH MAX STR 30 ML UDCUP NG SCH ×6 (01:34→21:40)
[2017-04-23] MEDS: LACTATED RINGERS 1,000 ML IV SCH ×3 (01:34→21:39)
[2017-04-23] MEDS ORDERED: NITROPRUSSIDE 50 MG/2 ML VIAL ONE (03:13)
[2017-04-23] MEDS: NITROPRUSSIDE 100 MG in DEXTROSE 5% 246 ML IV SCH (03:27)
[2017-04-23 05:40] LABS: Basophils % 0.1 % (0.0-0.8); Hematocrit 37.2 VOL% (42.0-52.0); Hemoglobin 12.7 GM/DL (14.0-18.0); Immature Granulocytes % 0.4 %; Immature Granulocytes Absolute 0.08 #; Lymphocytes # 1.3 10*3/uL (1.4-4.0); Lymphocytes % 5.9 % (21.2-54.2); Mean Corpuscular HGB Conc 34.1 GM/DL (32-36); Mean Corpuscular Hemoglobin 31 PG (27-34); Mean Corpuscular Volume 92.1 FL (87-102); Mean Platelet Volume 11.6 FL (9.6-12.0); Monocytes # 1.3 10*3/uL (0.11-0.8); Monocytes % 6.1 % (1.7-12.7); Neutrophils # 18.7 10*3/uL (1.4-7.4); Neutrophils % 87.5 % (38.7-73.9); Platelet Count 126 T/CUMM (130-400); Red Blood Count 4.04 MC/CUMM (3.8-5.5); White Blood Count 21.4 T/CUMM (4-12)
[2017-04-23 05:57] LABS: Calcium 8.7 MG/DL (8.5-10.1); Osmolality,Calculated 269.2 MOS/KG (273-304); Potassium 4.3 MMOL/L (3.5-5.1)
[2017-04-23 06:11] LABS: Band Neutrophils 16 % (0-10); Hypochromasia 1+; Lymphocytes 4 % (20-55); Segmented Neutrophils 79 % (50-85); Total Cells Counted 100
[2017-04-23 06:12] LABS: Platelet Estimate Decreased
[2017-04-23] MEDS: CIPROFLOXACIN INJ 400 MG in PREMIX 1 EACH IV SCH ×2 (06:38→19:01)
[2017-04-23] MEDS: METOCLOPRAMIDE 10 MG/2 ML VIAL IV SCH ×3 (14:51→23:27)
[2017-04-23] MEDS ORDERED: KETOROLAC 30 MG/1 ML VIAL IV ONE (15:00)
[2017-04-23] MEDS: PANTOPRAZOLE 40 MG VIAL IV SCH (16:29)
[2017-04-23] MEDS: KETOROLAC 15 MG/1 ML VIAL IV SCH (21:04)
[2017-04-24] MEDS: KETOROLAC 15 MG/1 ML VIAL IV SCH ×4 (02:37→20:56)
[2017-04-24] MEDS: ALUMINUM/MAGNES/SIMETH MAX STR 30 ML UDCUP NG SCH ×2 (02:37→05:45)
[2017-04-24] MEDS: CIPROFLOXACIN INJ 400 MG in PREMIX 1 EACH IV SCH ×2 (05:00→17:34)
[2017-04-24] MEDS: METOCLOPRAMIDE 10 MG/2 ML VIAL IV SCH ×3 (05:04→17:34)
[2017-04-24] MEDS: LACTATED RINGERS 1,000 ML IV SCH ×2 (05:08→11:18)
[2017-04-24 05:17] LABS: Basophils % 0.2 % (0.0-0.8); Eosinophils % 0.1 % (0.00-10.9); Hematocrit 36.8 VOL% (42.0-52.0); Hemoglobin 12.7 GM/DL (14.0-18.0); Immature Granulocytes % 0.4 %; Immature Granulocytes Absolute 0.08 #; Lymphocytes # 1.6 10*3/uL (1.4-4.0); Lymphocytes % 8.8 % (21.2-54.2); Mean Corpuscular HGB Conc 34.5 GM/DL (32-36); Mean Corpuscular Hemoglobin 31 PG (27-34); Mean Corpuscular Volume 90.9 FL (87-102); Mean Platelet Volume 10.6 FL (9.6-12.0); Monocytes # 1.3 10*3/uL (0.11-0.8); Monocytes % 7.2 % (1.7-12.7); Neutrophils # 15.5 10*3/uL (1.4-7.4); Neutrophils % 83.3 % (38.7-73.9); Platelet Count 148 T/CUMM (130-400); Red Blood Count 4.05 MC/CUMM (3.8-5.5); Red Cell Distribution Width 13.2 % (9.3-17.3); White Blood Count 18.6 T/CUMM (4-12)
[2017-04-24] MEDS: HYDROmorphone 2 MG/1 ML VIAL IV PRN ×4 (05:22→21:05)
[2017-04-24 06:02] LABS: Calcium 8.6 MG/DL (8.5-10.1); Osmolality,Calculated 274.8 MOS/KG (273-304)
[2017-04-24] MEDS: PANTOPRAZOLE 40 MG VIAL IV SCH (08:51)
[2017-04-25] MEDS: HYDROmorphone 2 MG/1 ML VIAL IV PRN ×3 (00:27→17:09)
[2017-04-25] MEDS: METOCLOPRAMIDE 10 MG/2 ML VIAL IV SCH ×2 (00:31→05:18)
[2017-04-25] MEDS: KETOROLAC 15 MG/1 ML VIAL IV SCH ×2 (02:43→09:31)
[2017-04-25] MEDS: CIPROFLOXACIN INJ 400 MG in PREMIX 1 EACH IV SCH (05:22)
[2017-04-25 05:51] LABS: Basophils % 0.2 % (0.0-0.8); Eosinophils % 0.2 % (0.00-10.9); Hemoglobin 11.9 GM/DL (14.0-18.0); Immature Granulocytes % 0.6 %; Immature Granulocytes Absolute 0.07 #; Lymphocytes # 1.5 10*3/uL (1.4-4.0); Lymphocytes % 12.4 % (21.2-54.2); Mean Corpuscular Hemoglobin 31 PG (27-34); Mean Corpuscular Volume 91.6 FL (87-102); Mean Platelet Volume 11.7 FL (9.6-12.0); Monocytes # 1.1 10*3/uL (0.11-0.8); Neutrophils # 9.5 10*3/uL (1.4-7.4); Neutrophils % 77.6 % (38.7-73.9); Platelet Count 144 T/CUMM (130-400); Red Blood Count 3.82 MC/CUMM (3.8-5.5); Red Cell Distribution Width 13.2 % (9.3-17.3); White Blood Count 12.3 T/CUMM (4-12)
[2017-04-25 06:27] LABS: Calcium 8.5 MG/DL (8.5-10.1); Osmolality,Calculated 272.8 MOS/KG (273-304); Potassium 4.3 MMOL/L (3.5-5.1)
[2017-04-25] MEDS: LACTATED RINGERS 1,000 ML IV SCH (06:38)
[2017-04-25] MEDS: PANTOPRAZOLE 40 MG VIAL IV SCH (09:34)
[2017-04-25] MEDS ORDERED: oxyCODONE/ACETAMINOPHEN 5-325 MG TABLET PO PRN (09:37)
[2017-04-25] MEDS: METOCLOPRAMIDE 10 MG TABLET PO SCH ×3 (12:19→20:17)
[2017-04-25] MEDS: ZINC OXIDE PASTE 113 GM TUBE TOP PRN (12:21)
[2017-04-25] MEDS: ENOXAPARIN 40 MG/0.4 ML SYRINGE SUBCUT SCH (12:26)
[2017-04-25] MEDS: oxyCODONE/ACETAMINOPHEN 5-325 MG TABLET PO PRN ×2 (14:50→20:16)
[2017-04-25] MEDS: CARVEDILOL 12.5 MG TABLET PO SCH ×2 (14:53→20:17)
[2017-04-25] MEDS: CIPROFLOXACIN 500 MG TABLET PO SCH (20:17)
[2017-04-26] MEDS: HYDROmorphone 2 MG/1 ML VIAL IV PRN ×3 (01:15→18:20)
[2017-04-26] MEDS: oxyCODONE/ACETAMINOPHEN 5-325 MG TABLET PO PRN ×2 (06:08→15:23)
[2017-04-26] MEDS: METOCLOPRAMIDE 10 MG TABLET PO SCH ×4 (09:13→20:20)
[2017-04-26] MEDS: CARVEDILOL 12.5 MG TABLET PO SCH (09:13)
[2017-04-26] MEDS: CLOPIDOGREL 75 MG TABLET PO SCH (09:17)
[2017-04-26] MEDS: PANTOPRAZOLE 40 MG TABLET PO SCH (09:17)
[2017-04-26] MEDS: ASPIRIN EC 81 MG TABLET PO SCH (09:18)
[2017-04-26] MEDS: CIPROFLOXACIN 500 MG TABLET PO SCH ×2 (09:18→20:20)
[2017-04-26] MEDS: ENOXAPARIN 40 MG/0.4 ML SYRINGE SUBCUT SCH (11:24)
[2017-04-26] MEDS: LOSARTAN 50 MG TABLET PO SCH (14:30)
[2017-04-26] MEDS: ZINC OXIDE PASTE 113 GM TUBE TOP PRN (20:19)
[2017-04-26] MEDS: CARVEDILOL 25 MG TABLET PO SCH (20:20)
[2017-04-27] MEDS: oxyCODONE/ACETAMINOPHEN 5-325 MG TABLET PO PRN ×2 (03:07→09:13)
[2017-04-27] MEDS: LACTATED RINGERS 1,000 ML IV SCH (07:38)
[2017-04-27] MEDS: METOCLOPRAMIDE 10 MG TABLET PO SCH ×2 (08:15→12:01)
[2017-04-27] MEDS: CIPROFLOXACIN 500 MG TABLET PO SCH (08:15)
[2017-04-27] MEDS: ASPIRIN EC 81 MG TABLET PO SCH (08:15)
[2017-04-27] MEDS: CLOPIDOGREL 75 MG TABLET PO SCH (08:15)
[2017-04-27] MEDS: LOSARTAN 50 MG TABLET PO SCH (08:15)
[2017-04-27] MEDS: ENOXAPARIN 40 MG/0.4 ML SYRINGE SUBCUT SCH ×2 (08:16→09:04)
[2017-04-27] MEDS: PANTOPRAZOLE 40 MG TABLET PO SCH (08:16)
[2017-04-27] MEDS: CARVEDILOL 25 MG TABLET PO SCH (08:16)
[2017-04-27 10:45] LABS: Basophils % 0.3 % (0.0-0.8); Eosinophils # 0.1 10*3/uL (0.0-0.87); Eosinophils % 1.4 % (0.00-10.9); Hematocrit 34.7 VOL% (42.0-52.0); Hemoglobin 12.2 GM/DL (14.0-18.0); Immature Granulocytes % 0.5 %; Immature Granulocytes Absolute 0.04 #; Lymphocytes # 1.5 10*3/uL (1.4-4.0); Lymphocytes % 17.4 % (21.2-54.2); Mean Corpuscular HGB Conc 35.2 GM/DL (32-36); Mean Corpuscular Hemoglobin 31 PG (27-34); Mean Corpuscular Volume 88.5 FL (87-102); Mean Platelet Volume 10.8 FL (9.6-12.0); Monocytes % 11.5 % (1.7-12.7); Neutrophils % 68.9 % (38.7-73.9); Platelet Count 252 T/CUMM (130-400); Red Blood Count 3.92 MC/CUMM (3.8-5.5); Red Cell Distribution Width 12.8 % (9.3-17.3); White Blood Count 8.8 T/CUMM (4-12)
[2017-04-27 11:20] LABS: Calcium 9.2 MG/DL (8.5-10.1); Potassium 3.9 MMOL/L (3.5-5.1)
[2017-04-27 11:22] VITALS: BP 141/80
== END 2017-04-27 12:10 | disposition home or self-care (01) | DRG 169 ==
LOC: N.OR 06:47 → N.SDSINP 06:56 → N.3E 15:00 → N.ICU 04-22 15:13 → N.3E 04-23 10:42
PROVIDERS: ADMIT Surgery; ATTEND Surgery